=== PATIENT | male | born 1985 | race Caucasian/White ===

== ENCOUNTER 2023-05-17 19:30 | Emergency (ER) | payer BC, SELFPAY ==
--- NOTE | ~2023-05-17 | XR_ITS ---
EXAM: XR knee RT 3V DATE: 05/17/2023 20:15 HISTORY: knee pain . COMPARISON: None available. FINDINGS: Normal mineralization. No fracture or dislocation. No lytic or blastic lesion. Mild tricom partmental osteoarthritis. Moderate joint effusion. No erosion or periosteal change. Soft tissues wit hin normal limits. IMPRESSION: No acute osseous finding in the right knee. Reviewed, dictated and finalized at location K. TECHNICIAN
[2023-05-17 19:32] VITALS: BP 127/77; PULSE 97; RESP 14; TEMP 36.7; O2SAT 95
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
[2023-05-17] MEDS: IBUPROFEN 600 MG TABLET PO (21:18)
[2023-05-17] MEDS: ACETAMINOPHEN 500 MG TABLET 1000 MG PO (21:18)
== END 2023-05-17 22:14 | disposition home or self-care (01) ==
PROVIDERS: Emergency Provider Student in an Organized Health Care Education/Training Program
DX: M25.561 Pain in right knee (principal); F10.90 Alcohol use, unspecified, uncomplicated; Y90.9 Presence of alcohol in blood, level not specified; W19.XXXA Unspecified fall, initial encounter
CPT/HCPCS: 73562; 99283; A9270

== ENCOUNTER 2023-05-26 12:56 | Emergency (ER) | payer SELFPAY ==
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
== END 2023-05-26 13:03 | disposition left against medical advice (07) ==
LOC: ANHED 13:06
DX: Z53.21 Procedure and treatment not carried out due to patient leaving prior to being seen by health care provider (principal)
CPT/HCPCS: 99199

== ENCOUNTER 2023-06-11 10:50 | Emergency (ER) | payer BC, SELFPAY ==
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
[2023-06-11 11:04] VITALS: BP 112/93; PULSE 88; RESP 16; TEMP 36.5; O2SAT 98
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
[2023-06-11 14:06] VITALS: BP 115/66; PULSE 71; RESP 20; O2SAT 100
== END 2023-06-11 14:08 | disposition home or self-care (01) ==
PROVIDERS: Emergency Provider Student in an Organized Health Care Education/Training Program
DX: S00.83XA Contusion of other part of head, initial encounter (principal); S00.81XA Abrasion of other part of head, initial encounter; S69.92XA Unspecified injury of left wrist, hand and finger(s), initial encounter; K02.9 Dental caries, unspecified; K03.2 Erosion of teeth; F17.210 Nicotine dependence, cigarettes, uncomplicated; Y04.2XXA Assault by strike against or bumped into by another person, initial encounter
CPT/HCPCS: 29125; 70450; 70486; 73130; 99284

== ENCOUNTER 2023-11-15 16:25 | Emergency (ER) | payer BC, SELFPAY ==
[2023-11-15 16:39] VITALS: BP 118/77; PULSE 104; RESP 20; TEMP 36.5; O2SAT 97
--- NOTE | 2023-11-15 19:48 | ED.GENADULT ---
HPI - General Adult General Chief complaint: Psychiatric Symptoms Stated complaint: depression Time Seen by Provider: 11/15/23 19:17 History of Present Illness HPI narrative: This is a 37-year-old male presenting for a work note. Patient says he has felt depressed and tearful over the last several days. This has prevented him from going to work. He is not suicidal or homicidal. No hallucinations. No history of suicide attempts. He did use some alcohol but denies drug use. No access to a firearm. Patient does not have a primary care physician or psychiatrist that he sees. Patient is requesting a work note for why did not make it yesterday and today and a return to work note as well. Related Data Allergies Allergy/AdvReac Type Severity Reaction Status Date / Time No Known Allergies Allergy Verified 11/15/23 16:38 [facility] Past Medical History Medical History Daily consumption of alcohol Social History Social History (Updated 06/11/23 @ 15:01 by Pippa Benjamin MD) Smoking packs per day: 1 Smoking cigarettes per day: 20.0 Smoking status: Current every day smoker Alcohol intake: current Substance use type: marijuana Other substance usage details: Denies other illicit drugs Exam Narrative: APPEARANCE: No apparent distress. Head: atraumatic. EYES: EOMI, NOSE: Atraumatic NECK: Trachea midline RESPIRATORY: No increased rate of breathing scattered wheezing no respiratory distress CARDIOVASCULAR: RRR, no peripheral edema ABDOMINAL: Non-distended MUSCULOSKELETAl: No obvious deformities NEURO: Alert. Moving 4/4 extremities SKIN:: Warm, dry. Normal color PSYCHIATRIC: Normal affect Course Vital Signs Vital signs: Vital Signs Temperature 97.7 F 11/15/23 16:39 Pulse Rate 104 H 11/15/23 16:39 Respiratory Rate 20 11/15/23 16:39 Blood Pressure 118/77 11/15/23 16:39 Pulse Oximetry 97 11/15/23 16:39 Oxygen Delivery Room Air 11/15/23 16:39 Temperature 97.7 F 11/15/23 16:39 Pulse Rate 104 H 11/15/23 16:39 Respiratory Rate 20 11/15/23 16:39 Blood Pressure 118/77 11/15/23 16:39 Pulse Oximetry 97 11/15/23 16:39 Oxygen Delivery Room Air 11/15/23 16:39 Medical Decision Making MDM Narrative Medical decision making narrative: -Course: 37-year-old male presenting for depression. He is not suicidal, homicidal or overtly psychotic. He is requesting a work note so he can go back to work. This was provided he was given resources for our local psychiatric clinic. 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 -Shared decision making / Disposition: Discharge Vital Signs Vital Signs: Vital Signs Temperature 97.7 F 11/15/23 16:39 Pulse Rate 104 H 11/15/23 16:39 Respiratory Rate 20 11/15/23 16:39 Blood Pressure 118/77 11/15/23 16:39 Pulse Oximetry 97 11/15/23 16:39 Oxygen Delivery Room Air 11/15/23 16:39 Temperature 97.7 F 11/15/23 16:39 Pulse Rate 104 H 11/15/23 16:39 Respiratory Rate 20 11/15/23 16:39 Blood Pressure 118/77 11/15/23 16:39 Pulse Oximetry 97 11/15/23 16:39 Oxygen Delivery Room Air 11/15/23 16:39 Discharge Plan Discharge Clinical Impression: Depression Patient Disposition: Home, Self-Care Condition: Stable Instructions: Antibiotic Form, Depression (ED) Additional Instructions: Please follow-up with the resources provided that the chest not clinic. Return to the ED if you develop thoughts of harming herself or others. You can return at any time for re-evaluation. You are cleared to return to work. Prescriptions: No Action acetaminophen 500 mg capsule 1,000 mg PO Q6H PRN (Reason: pain) 7 Days Qty: 60 0RF ibuprofen 600 mg tablet 600 mg PO TID PRN (Reason: pain) 7 Days Qty: 20 0RF Follow-up/Referrals: PHYSICIAN,[facility] [Primary Care Provider] - Stand Alone Forms: Wo
[2023-11-15 20:05] VITALS: BP 120/70; PULSE 98; RESP 20; O2SAT 98
== END 2023-11-15 20:05 | disposition home or self-care (01) ==
PROVIDERS: Emergency Provider Emergency Medicine
DX: F32.A Depression, unspecified (principal); F17.210 Nicotine dependence, cigarettes, uncomplicated
CPT/HCPCS: 99281

== ENCOUNTER 2024-04-06 10:18 | Emergency (ER) | payer BC, SELFPAY ==
--- NOTE | ~2024-04-06 | XR_ITS ---
EXAMINATION: XR chest 2V DATE: 04/06/2024 11:01 INDICATION: Shortness of breath, cough and weakness TECHNIQUE: PA and lateral views of the chest were obtained. COMPARISON: None FINDINGS: The lungs are clear with no focal airspace opacities, pulmonary edema, pleural effusion or pneumothor ax. The cardiomediastinal silhouette is normal. Mild thoracic spondylosis. IMPRESSION: 1. No acute cardiopulmonary disease. Reviewed, dictated and finalized at location A.
[2024-04-06 10:38] VITALS: BP 145/88; PULSE 104; RESP 16; TEMP 36.9; O2SAT 96
[2024-04-06 11:23] LABS: Influenza A QL RT-PCR Negative (Negative); Influenza B QL RT-PCR Negative (Negative); RSV RNA, RT-PCR Negative (Negative); SARS-CoV-2 RNA PCR Negative (Negative)
--- NOTE | 2024-04-06 12:40 | ED.GENADULT ---
HPI - General Adult General Chief complaint: Upper Respiratory Infection Stated complaint: URI symptoms Time Seen by Provider: 04/06/24 12:21 History of Present Illness HPI narrative: 38-year-old male that does have a history of greater than 1 pack per day smoking history presents to the emergency department for a complaint of cough and congestion with associated wheeze that is been going on for greater than 1 week. Patient states he has had decreased sleep and decreased p.o. intake secondary to the persistent cough. Related Data Allergies Allergy/AdvReac Type Severity Reaction Status Date / Time No Known Allergies Allergy Verified 04/06/24 13:05 Review of Systems Review of Systems: All systems reviewed & are unremarkable except as noted in HPI and below PMFSH Past Medical History Medical History Daily consumption of alcohol Social History Social History (Updated 06/11/23 @ 15:01 by Pippa Benjamin MD) Smoking packs per day: 1 Smoking cigarettes per day: 20.0 Smoking status: Current every day smoker Alcohol intake: current Substance use type: marijuana Other substance usage details: Denies other illicit drugs Exam Narrative: APPEARANCE: Well appearing, no pain, no distress, well-nourished. HEAD: normocephalic, atraumatic. EYES: PERRLA/EOMI, conjunctivae clear. NOSE: Normal no drainage EARS:TMS clear with good light reflex. THROAT: Pharynx clear, no exudate. NECK: Supple. No adenopathy, no masses. RESPIRATORY: Extensive wheezing CARDIOVASCULAR: Regular rate and rhythm without murmurs rubs or gallops. ABDOMINAL: Soft, nontender, nondistended, normal bowel sounds MUSCULOSKELETAL: Moves all extremities. Strength/ROM intact, No edema, No calf tenderness. NEURO: Alert. Cranial nerves II through XII intact. Good gait. Good coordination SKIN: Warm, dry. Normal Color Course Course Emergency Course: Patient felt improved with treatment was discharged home antibiotics steroids, Tessalon Perles and p.r.n. albuterol. Vital Signs Vital signs: Vital Signs Temperature 98.4 F 04/06/24 10:38 Pulse Rate 104 H 04/06/24 10:38 Respiratory Rate 16 04/06/24 10:38 Blood Pressure 145/88 H 04/06/24 10:38 Pulse Oximetry 96 04/06/24 10:38 Temperature 98.4 F 04/06/24 10:38 Pulse Rate 104 H 04/06/24 13:01 Respiratory Rate 20 04/06/24 13:01 Blood Pressure 145/88 H 04/06/24 10:38 Pulse Oximetry 96 04/06/24 10:38 Oxygen Delivery Room Air 04/06/24 13:06 Medical Decision Making MDM Narrative Medical decision making narrative: 38-year-old male present to the emergency department for evaluation for increased cough congestion and wheeze. Patient is a long-term and heavy smoker. Patient was strongly encouraged to refrain from smoking. Chest x-ray shows no acute cardiopulmonary abnormality. Patient was negative for influenza COVID and RSV. Patient did feel improved after breathing treatment. Patient was started on Augmentin azithromycin due to the duration of the illness possibility of underlying bacterial pneumonia. Patient was also provided Tessalon Perles and albuterol inhaler with spacer for home. On re-evaluation after the breathing treatment patient does still have some wheezing. Patient was started on steroids in the emergency department as well. Patient was discharged home with additional steroids. Patient states he does feel improved from initial breathing treatment. Patient was once again encouraged to quit smoking and was educated on ways to do this. Patient was also all read information to have follow-up with a primary care physician. Differential Diagnosis Differential Diagnosis: Pneumonia, COPD, COVID, RSV, influenza pneumothorax Vital Signs Vital Signs: Vital Signs Temperature 98.4 F 04/06/24 10:38 Pulse Rate 104 H 04/06/24 10:38 Respiratory Rate 16 04/06/24 10:38 Blood Pressure 145/88 H 04/06/24 10:38 Pulse Oximetry 96 04/06/24 10:3
[2024-04-06 12:54] VITALS: PULSE 97; RESP 20
[2024-04-06] MEDS: ALBUTEROL SULFATE NEB 2.5 MG/3 ML INH INHALATION (12:54)
[2024-04-06 13:01] VITALS: PULSE 104; RESP 20
[2024-04-06] MEDS: AMOXICILLIN/CLAVULANATE K 875-125 MG TAB 1 TABLET PO (13:07)
[2024-04-06] MEDS: BENZONATATE 100 MG CAPSULE PO (13:07)
[2024-04-06] MEDS: AZITHROMYCIN 250 MG TABLET 500 MG PO (13:07)
[2024-04-06] MEDS: predniSONE 20 MG TABLET 60 MG PO (13:30)
[2024-04-06 13:32] VITALS: BP 136/90; PULSE 108; RESP 18; TEMP 36.7; O2SAT 98
== END 2024-04-06 13:33 | disposition home or self-care (01) ==
LOC: ANHED 13:12
PROVIDERS: Preventive Medicine Aerospace Medicine; Emergency Provider Emergency Medicine
DX: J06.9 Acute upper respiratory infection, unspecified (principal); Z20.822 Contact with and (suspected) exposure to COVID-19; F17.210 Nicotine dependence, cigarettes, uncomplicated
CPT/HCPCS: 71046; 87637; 94640; 94664; 99283; A9270; J7512

== ENCOUNTER 2024-09-10 16:53 | Emergency (ER) | payer BC, SELFPAY ==
[2024-09-10 17:00] VITALS: BP 117/70; PULSE 103; RESP 18; TEMP 36.4; O2SAT 100
--- NOTE | 2024-09-10 17:37 | ED.NAVMDI ---
HPI - Nausea/Vomiting/Diarrhea General Chief complaint: Nausea/Vomiting/Diarrhea Stated complaint: shaking, back pain, fever (?) Time Seen by Provider: 09/10/24 17:25 Focused HPI: Patient is a 38-year-old male who presents to the ER with a main complaint of ?shaking. He reports his symptoms have been going on ?since I was here last time. Patient's chart indicates he has a history of narcotic abuse. He was last seen in this ER in July 2024. Patient is a poor historian and the to identify specific symptoms he is experiencing right now. GENERAL: Well-appearing, well-nourished, and in no acute distress. HEAD: Normocephalic, atraumatic. CHEST: Coarse upper lungs, lower lungs clear to auscultation. ?No respiratory distress. HEART: Tachycardia NEURO: ?Alert and oriented x3. Patient screened in triage and initial orders placed.? ?Additional care and disposition to be based upon?diagnostic testing and treatment. Related Data Allergies Allergy/AdvReac Type Severity Reaction Status Date / Time No Known Allergies Allergy Verified 04/06/24 13:05 [facility] Past Medical History Medical History Daily consumption of alcohol Social History Social History Smoking packs per day: 1 Smoking cigarettes per day: 20.0 Smoking status: Current every day smoker Alcohol intake: current Substance use type: opiates Other substance usage details: Denies other illicit drugs Course Vital Signs Vital signs: Vital Signs Temperature 36.4 C L 09/10/24 17:00 Pulse Rate 103 H 09/10/24 17:00 Respiratory Rate 18 09/10/24 17:00 Blood Pressure 117/70 09/10/24 17:00 Pulse Oximetry 100 09/10/24 17:00 Oxygen Delivery Room Air 09/10/24 17:00 Temperature 36.4 C L 09/10/24 17:00 Pulse Rate 103 H 09/10/24 17:00 Respiratory Rate 18 09/10/24 17:00 Blood Pressure 117/70 09/10/24 17:00 Pulse Oximetry 100 09/10/24 17:00 Oxygen Delivery Room Air 09/10/24 17:00 Discharge Plan Discharge Clinical Impression: Drug-induced nausea and vomiting Patient Disposition: Elopement After Seen by Prov Condition: Stable Patient Language: Surinamese Prescriptions: No Action acetaminophen 500 mg capsule 1,000 mg PO Q6H PRN (Reason: pain) 7 Days Qty: 60 0RF ibuprofen 600 mg tablet 600 mg PO TID PRN (Reason: pain) 7 Days Qty: 20 0RF albuterol sulfate 90 mcg/actuation HFA aerosol inhaler 1 inh inhalation QID PRN (Reason: shortness of breath or wheezing) Qty: 6.7 0RF benzonatate 100 mg capsule 100 mg PO TID PRN (Reason: cough) Qty: 14 0RF amoxicillin-pot clavulanate 875-125 mg tablet 1 tablet PO Q12H 7 Days Qty: 14 0RF azithromycin 250 mg tablet See Rx Instructions .ROUTE .COMPLEX Qty: 6 0RF Rx Instructions: For 250 mg dose pack: take 500 mg today (day 1), then 250 mg for 4 days (days 2-5) prednisone 50 mg tablet 50 mg PO DAILY 5 Days Qty: 5 0RF naloxone 4 mg/actuation spray,non-aerosol 1 spray intranasal Q2M Qty: 2 0RF Rx Instructions: spray 1 dose into ONE nostril; alternate nostrils w each dose until help arrives ondansetron 4 mg tablet,disintegrating 4 mg PO Q8H PRN (Reason: nausea and vomiting) Qty: 10 0RF Follow-up/Referrals: UNKNOWN,DOCTOR [Primary Care Provider] -
--- NOTE | 2024-09-10 17:39 | PC.NURSE ---
No answer when pt called for XRAY. Per family in waiting room, he is in the car to eat. Pt did not return to the ER to be seen, did not notify anyone he was leaving and was not seen exiting the ER.
== END 2024-09-10 18:27 | disposition left against medical advice (07) ==
PROVIDERS: Emergency Provider Registered Nurse
DX: T50.901A Poisoning by unspecified drugs, medicaments and biological substances, accidental (unintentional), initial encounter (principal); R11.2 Nausea with vomiting, unspecified; F17.210 Nicotine dependence, cigarettes, uncomplicated
CPT/HCPCS: 99281

== ENCOUNTER 2024-10-15 13:33 | Emergency (ER) | payer BC, SELFPAY ==
[2024-10-15 13:50] VITALS: BP 121/88; PULSE 116; RESP 16; TEMP 36.6; O2SAT 99
--- NOTE | 2024-10-15 14:03 | ED.PSYCH ---
HPI - Psych General Chief Complaint: Psychiatric Symptoms Stated Complaint: Requesting Psych-having SI thoughts Time Seen by Provider: 10/15/24 13:54 History of Present Illness HPI Narrative: Patient is a 38-year-old male who presents ER with thoughts of self-harm. Has history of suicide attempt with overdose 6 months ago. Reports he had 1 drink of alcohol today. Reports he has increased stress at work due to a new boss. He was written up for his 1st offense and given 1 week suspension. He has been thinking about harming the business but not to person. He purchased a sling shot to cause some damage. Because he has been thinking like that he knows with wrong he has been thinking about taking his own life. Related Data Allergies Allergy/AdvReac Type Severity Reaction Status Date / Time No Known Allergies Allergy Verified 10/15/24 13:34 Review of Systems Review of Systems: All systems reviewed & are unremarkable except as noted in HPI and below Constitutional: Constitutional: Reports no additional constitutional complaints ENT: Reports system reviewed and no additional complaints, except as documented Cardiovascular: Cardiovascular: Reports no additional cardiovascular complaints Respiratory: Respiratory: Reports no additional respiratory complaints Gastrointestinal: Gastrointestinal: Reports no additional gastrointestinal complaints Neurologic: Reports system reviewed and no additional complaints, except as documented PMFSH Past Medical History Medical History Daily consumption of alcohol Social History Social History Smoking packs per day: 1 Smoking cigarettes per day: 20.0 Smoking status: Current every day smoker Alcohol intake: current Substance use type: marijuana Other substance usage details: Denies other illicit drugs Exam Narrative: GENERAL: Well-appearing, well-nourished, and in no acute distress. HEAD: Normocephalic, atraumatic. ENT: Mucous membranes moist. CHEST: Clear to auscultation. No respiratory distress. HEART: Regular rate and rhythm. Normal peripheral pulses. ABDOMEN: Soft, nontender, nondistended. EXTREMITIES: Normal range of motion. No edema. SKIN: Warm, dry, no rash. NEURO: Alert and oriented x3. PSYCH: Normal mood and affect. Reports suicidal ideation. Course Course Emergency Course: 1505: Patient is medically cleared for crisis evaluation. 1625: Crisis has evaluated the patient, recommend him patient placement and patient is voluntary. 1903: Awaiting placement, care transferred to Dr. Ramos. Vital Signs Vital signs: Vital Signs Temperature 98 F 10/15/24 13:50 Pulse Rate 116 H 10/15/24 13:50 Respiratory Rate 16 10/15/24 13:50 Blood Pressure 121/88 10/15/24 13:50 Pulse Oximetry 99 10/15/24 13:50 Oxygen Delivery Room Air 10/15/24 13:50 Temperature 98.3 F 10/15/24 16:22 Pulse Rate 90 10/15/24 16:22 Respiratory Rate 18 10/15/24 16:22 Blood Pressure 128/86 10/15/24 16:22 Pulse Oximetry 98 10/15/24 16:22 Oxygen Delivery Room Air 10/15/24 13:50 MDM - Psych Lab Data 10/15/24 14:13 10/15/24 14:13 Labs: Lab Results 10/15/24 Range/Units 14:13 WBC 8.6 (4.5-10.0) K/mm3 RBC 5.18 (4.6-6.20) M/mm3 Hgb 17.3 (14.0-18.0) g/dL Hct 50.6 (42.0-52.0) % MCV 97.7 (80-100) fl MCH 33.4 (26-34) pg MCHC 34.2 (32-36) g/dl RDW 13.9 (11.5-14.5) % Plt Count 318 (150-375) k/mm3 MPV 8.8 (7.4-10.4) fl Immature Gran % (Auto) 0.2 (0-0.5) % Neut % (Auto) 47.2 (45.5-73.1) % Lymph % (Auto) 43.6 (18.3-44.2) % [place] % (Auto) 7.6 (2.6-8.5) % Eos % (Auto) 0.6 (0-4.4) % Baso % (Auto) 0.8 (0.2-1.2) % Lymph # (Auto) 3.73 H (0.9-3.2) K/mm3 [place] # (Auto) 0.7 H (0.1-0.6) K/mm3 Eos # (Auto) 0.1 (0-0.3) K/mm3 Baso # (Auto) 0.1 (0.0-0.1) K/mm3 Abs Immat Gran (auto) 0.02 (0.00-0.031) K/mm3 Absolute Neuts (auto) 4.0 (1.3-6.7) K/mm3 Absolute Nucleated RBC 0.000 (0.0-0.012) K/mm3 Nucleated RBC % 0.0 (0.0-0.2) % Sodium 139 (137-145) mmol/L Potassium 4.1 (3.4-5.0) mmol/L Chloride 103 (98-107) mmol/L Carbon Dioxide 22 (22-30) mmol/L Anion Gap 14 H (4-12) mmol/L BUN 7 L (9-20) mg/dL Creatinine 0.73 (0.7-1.3) mg/dL Estim Creat Clear Calc 120 ml/min Estimated GFR > 60 (59 - ) Glucose 110 (65-110) mg/dL Calcium 8.8 (8.4-10.2) mg/dL Total Bilirubin 0.4 (0.2-1.3) mg/dL AST 28 (17-59) U/L ALT 17 (6-50) U/L Alkaline Phosphatase 66 (38-126) U/L Total Protein 8.0 (6.3-8.2) g/dL Albumin 4.9 (3.5-5.1) g/dL TSH (Reflex) 1.700 (0.465-4.68) uIU/mL Urine Color Dark yellow (Yellow) Urine Appearance Clear (Clear) Urine pH 5.5 (5.0-9.0) Ur Specific [place] 1.024 (1.001-1.035) Urine Protein Trace (Negative) mg/dL Urine Glucose (UA) Negative (Negative) mg/dL Urine Ketones Trace H (Negative) mg/dL Ur Blood (Man) Negative (Negative) Urine Nitrate Negative (Negative) Urine Bilirubin Negative (Negative) Urine Urobilinogen 1.0 (<2.0) mg/dL Leukocyte Esterase Rfl Negative (Negative) ASIA/UL Urine RBC 0-2 (0-2) /hpf Urine WBC 0-5 (0-3) /hpf Ur Squamous Epith Cells None seen (Few) /hpf Urine Bacteria None seen /hpf Urine Casts 0-2 Urine Opiates Screen Negative (Negative) Urine Methadone Screen Negative (Negative) Ur Barbiturates Screen Negative (Negative) Ur Phencyclidine Scrn Negative (Negative) Ur Amphetamine Screen Negative (Negative) U Benzodiazepines Scrn Negative (Negative) Urine Cocaine Screen Negative (Negative) U Cannabinoids Screen Positive A (Negative) Ethyl Alcohol 35 (<10) mg/dL Influenza A (RT-PCR) Negative (Negative) Influenza B (RT-PCR) Negative (Negative) RSV (RT-PCR) Negative (Negative) SARS-CoV-2 RNA (RT-PCR) Negative (Negative) Discharge Plan Discharge Clinical Impression: Suicidal ideation Patient Disposition: Psychiatric Hosp Condition: Stable Patient Language: Sami Prescriptions: No Action acetaminophen 500 mg capsule 1,000 mg PO Q6H PRN (Reason: pain) 7 Days Qty: 60 0RF ibuprofen 600 mg tablet 600 mg PO TID PRN (Reason: pain) 7 Days Qty: 20 0RF albuterol sulfate 90 mcg/actuation HFA aerosol inhaler 1 inh inhalation QID PRN (Reason: shortness of breath or wheezing) Qty: 6.7 0RF benzonatate 100 mg capsule 100 mg PO TID PRN (Reason: cough) Qty: 14 0RF amoxicillin-pot clavulanate 875-125 mg tablet 1 tablet PO Q12H 7 Days Qty: 14 0RF azithromycin 250 mg tablet See Rx Instructions .ROUTE .COMPLEX Qty: 6 0RF Rx Instructions: For 250 mg dose pack: take 500 mg today (day 1), then 250 mg for 4 days (days 2-5) prednisone 50 mg tablet 50 mg PO DAILY 5 Days Qty: 5 0RF naloxone 4 mg/actuation spray,non-aerosol 1 spray intranasal Q2M Qty: 2 0RF Rx Instructions: spray 1 dose into ONE nostril; alternate nostrils w each dose until help arrives ondansetron 4 mg tablet,disintegrating 4 mg PO Q8H PRN (Reason: nausea and vomiting) Qty: 10 0RF Follow-up/Referrals: UNKNOWN,DOCTOR [Primary Care Provider] -
[2024-10-15 14:22] LABS: Basophils Absolute Auto 0.1 K/mm3 (0.0-0.1); Basophils Percent Auto 0.8 % (0.2-1.2); Eosinophils Absolute Auto 0.1 K/mm3 (0-0.3); Eosinophils Percent Auto 0.6 % (0-4.4); Hematocrit 50.6 % (42.0-52.0); Hemoglobin 17.3 g/dL (14.0-18.0); Immature Granulocyte Absolute 0.02 K/mm3 (0.00-0.031); Immature Granulocyte Percent A 0.2 % (0-0.5); Lymphocytes Absolute Auto 3.73 K/mm3 (0.9-3.2); Lymphocytes Percent Auto 43.6 % (18.3-44.2); Mean Corpuscular HGB Conc 34.2 g/dl (32-36); Mean Corpuscular Hemoglobin 33.4 pg (26-34); Mean Corpuscular Volume 97.7 fl (80-100); Mean Platelet Volume 8.8 fl (7.4-10.4); Monocytes Absolute Auto 0.7 K/mm3 (0.1-0.6); Monocytes Percent Auto 7.6 % (2.6-8.5); Neutrophils Percent Auto 47.2 % (45.5-73.1); Platelet Count Result 318 k/mm3 (150-375); Red Blood Count 5.18 M/mm3 (4.6-6.20); Red Cell Distribution Width 13.9 % (11.5-14.5); White Blood Count 8.6 K/mm3 (4.5-10.0)
[2024-10-15 14:29] LABS: Add Urine Microscopic? YES; Appearance Urine Clear (Clear); Bacteria Urine None Seen /hpf; Bilirubin Urine Negative (Negative); Blood Urine Negative (Negative); Color Urine Dark Yellow (Yellow); Glucose Urine UA Negative (Negative); Ketones Urine Trace mg/dL (Negative); Leukocyte Esterase Ur Negative LEU/UL (Negative); Nitrate Urine Negative (Negative); Non Pathogenic Casts 0-2; Protein Urine Trace mg/dL (Negative); RBC Urine 0-2 /hpf (0-2); Specific Grav Ur 1.024 (1.001-1.035); Squamous Epithelial Cell Urine None Seen /hpf (Few); WBC Urine 0-5 /hpf (0-3); pH Urine 5.5 (5.0-9.0)
[2024-10-15 14:31] LABS: Alanine Aminotransferase 17 U/L (6-50); Albumin Level 4.9 g/dL (3.5-5.1); Alkaline Phosphatase 66 U/L (38-126); Anion Gap 14 mmol/L (4-12); Aspartate Amino Transferase 28 U/L (17-59); Bilirubin,Total 0.4 mg/dL (0.2-1.3); Blood Urea Nitrogen 7 mg/dL (9-20); Calcium 8.8 mg/dL (8.4-10.2); Carbon Dioxide 22 mmol/L (22-30); Chloride 103 mmol/L (98-107); Estimated CRCL calculation 120 ml/min; Estimated Glomerular Filt Rate > 60; Glucose 110 mg/dL (65-110); Potassium 4.1 mmol/L (3.4-5.0); Sodium 139 mmol/L (137-145)
[2024-10-15 14:37] LABS: Ethanol 35 mg/dL (<10)
[2024-10-15 14:41] LABS: Amphetamine Screen Urine Negative (Negative); Barbiturate Screen Urine Negative (Negative); Benzodiazepines Screen Urine Negative (Negative); Cannabinoid Screen Urine Positive (Negative); Cocaine Screen Urine Negative (Negative); Methadone Screen Urine Negative (Negative); Opiate Screen Urine Negative (Negative); Phencyclidine Screen Urine Negative (Negative)
[2024-10-15 15:00] LABS: Influenza A QL RT-PCR Negative (Negative); Influenza B QL RT-PCR Negative (Negative); RSV RNA, RT-PCR Negative (Negative); SARS-CoV-2 RNA PCR Negative (Negative)
--- OUTSIDE RECORDS SUMMARY | 2024-10-15 15:29 | XMS_ITS | Continuity of Care Document ---
Author Organization [facility] Auth Address [address] [place] [phone] Phone Care Team Providers Care Newspaper Editor Name Role Phone Richie Whitten MD Unavailable [...] Diagnoses Date Provider Providers Copied on Encounter [facility], [facility] [address] [place] [address], [address] [place] [address], tel:[phone] Urgent Care Center No Information Maria Dolores Quiroz. [address] [place] [address], [id number], . tel:[phone] [facility], [address] [place] [address], [id number], tel:[phone] Ultrasound No Information Maria Dolores Quiroz. [address] [place] [address], [id number], . tel:[phone] Family History Family Member Type Diagnosis Age [...]
[2024-10-15 16:22] VITALS: BP 128/86; PULSE 90; RESP 18; TEMP 36.8; O2SAT 98
--- NOTE | 2024-10-15 17:00 | PC.NURSE ---
patient currently denying any suicidal or homicidal ideation at this time.
--- OUTSIDE RECORDS SUMMARY | 2024-10-15 17:08 | XMS_ITS | Continuity of Care Document ---
Author Organization [facility] Auth Address [address] [place] [phone] Phone Care Team Providers Care Ceo Na Name Role Phone Richie Whitten MD Unavailable [...] Diagnoses Date Provider Providers Copied on Encounter [facility], [facility] [address] [place] [address], [address] [place] [address], tel:[phone] Urgent Care Center No Information Maria Dolores Quiroz. [address] [place] [address], [id number], . tel:[phone] [facility] Auth, [address] [place] [address], [id number], tel:[phone] Ultrasound No Information Maria Dolores Quiroz. [address] [place] [address], [id number], . tel:[phone] Family History Family Member Type Diagnosis Age [...]
--- NOTE | 2024-10-15 17:59 | PC.NURSE ---
Faxed [facility] the chart a 3rd time, including ER MD notes and Nurses notes
--- NOTE | 2024-10-15 19:09 | PC.NURSE ---
Kelli called to report they were accepting pt. States they will call for nurse to nurse in approx 30 min.
== END 2024-10-15 22:30 ==
PROVIDERS: Emergency Provider Emergency Medicine
DX: R45.851 Suicidal ideations (principal); Z11.52 Encounter for screening for COVID-19; F17.210 Nicotine dependence, cigarettes, uncomplicated
CPT/HCPCS: 36415; 80053; 80307; 81001; 82077; 84443; 85025; 87637; 99284; 99285

== ENCOUNTER 2024-11-15 18:29 | Emergency (ER) | payer BC, SELFPAY ==
--- NOTE | ~2024-11-15 | XR_ITS ---
CHEST RADIOGRAPH CLINICAL HISTORY: Cough . COMPARISON: 04/06/2024 TECHNIQUE: Single portable view of the chest. Examination is markedly limited by technique FINDINGS The cardiomediastinal silhouette is unremarkable. The lungs are clear. IMPRESSION: No focal infiltrate or effusion. Reviewed, dictated and finalized at location A.
--- NOTE | ~2024-11-15 | CT_ITS ---
History: Left-sided weakness PROCEDURE: CT head without contrast. COMPARISON: None TECHNIQUE: Axial imaging of the head performed from the skull base to the vertex without IV contrast. Sagittal a nd coronal reformations obtained. DLP: 681 mGy-cm FINDINGS: The ventricles are normal in size, shape and position. There is no mass, mass effect or midline shift. There is no abnormal extra-axial fluid collection or intracranial hemorrhage. Mucoperiosteal thickening within the bilateral ethmoid sinuses, left greater than right. Remaining paranasal sinuses are normal. The mastoid air cells are well aerated. No acute displaced fractures within the overlying cranium. Impression: No acute intracranial hemorrhage or suspicious mass effect. Inflammatory sinus disease Reviewed, dictated and finalized at location A. Impression: No acute intracranial hemorrhage or suspicious mass effect. Inflammatory sinus disease
[2024-11-15 18:30] VITALS: BP 119/86; PULSE 106; RESP 18; TEMP 37; O2SAT 97
--- OUTSIDE RECORDS SUMMARY | 2024-11-15 18:31 | XMS_ITS | Continuity of Care Document ---
Author Organization [facility] Auth Address [address] [place] [phone] Phone Care Team Providers Care Certified Medical Dosimetrist Name Role Phone Richie Whitten MD Unavailable [...] Diagnoses Date Provider Providers Copied on Encounter [facility], [facility] [address] [place] [address], [address] [place] [address], tel:[phone] Urgent Care Center No Information Maria Dolores Quiroz. [address] [place] [address], [id number], . tel:[phone] [facility], [address] [place] [address], [id number], tel:[phone] Ultrasound No Information Maria Dolores Quiroz. [address] [place] [address], [id number], . tel:[phone] Family History Family Member Type Diagnosis Age [...]
--- OUTSIDE RECORDS SUMMARY | 2024-11-15 18:31 | XMS_ITS | Patient Health Record ---
Author Organization [facility] Address [address] [place] [address] Care Team Providers Care Meat Smoker Name Role Phone Sailaja Givens Primary Care Provider Allergies No Known Allergies Reason For Referral Reason client would like co unseling, he is also homeless Diagnosis 1 Alcohol abuse (F10.1 0) Diagnosis 2 PTSD (post-traumatic stress disorder) (F43.10) Diagnosis 3 VIRAJ (generalized anx iety disorder) (F41.1) Diagnosis 4 Cannabis abuse (F12. 10) Diagnosis 5 Bipolar 1 disorder w ith moderate priscilla (F31.12) Diagnosis 6 Suicidal ideation (R 45.851) Referral Organization [facility] Referring Provider First Name Sailaja Referring Provider Last Name Chno Referring Provider Speciality Psychiatry Referred Provider Specialty [facility] [place] Clinical Notes Dorothea Villalpando 08:18:57 AM >Reviewed TIER and noted client has already spoken with central access re: therapy and housing programming. No further needs at this time. Referral Priority Routine Medications Medication SIG (Take, Route, Frequency, Duration) Notes Start Date End Date Status [place] Carbonate 150 MG 1 capsule Orall y Twice a day for 30 days Active DULoxetine HCl 30 MG 1 capsule Orally On ce a day for 30 day(s) 10/31/2024 Active hydrOXYzine Pamoate 25 MG 1 capsule at b edtime as needed Orally Once a day for 30 day(s) 10/31/2024 Active Social History Tobacco Use: Social History Observation Description Date Details (start date - stop date) Current Smoker NA - NA Tobacco Control (Standard) Question Answer Notes Tobacco use: Current smoker How often do you smoke cigarettes? Every day How many cigarettes a day do you smoke? 31 or mo re How soon after you wake up d o you smoke your first cigarette? Within 5 minutes Are you interested in quitting? Thinking about q uitting Problems Problem Type SNOMED Code ICD Code Onset Dates Problem Status W/U Status Risk Notes Problem Alcohol abuse (92842771) Alcohol abuse (F10.10) Active confirmed Problem Posttraumatic stress disorder (14726058) PTSD (post-traumat ic stress disorder) (F43.10) Active confirmed Problem Generalized anxiety disorder (69055844) VIRAJ (generalized anxiety disorder) (F41.1) Active confirmed Problem Cannabis abuse (42442134) Cannabis abuse (F12.10) Active confirmed Problem Bipolar affective disorder, currently manic, moderate (689613997) Bipolar 1 disorder with moderate priscilla (F31.12) Active confirmed Vital Signs Height 5ft 9in in 10/23/2024 Weight 165 lbs 10/23/2024 BMI 24.36 kg/m2 10/23/2024 Encounters Encounter Location Date Provider Diagnosis [address] [address] 10/23/2024 Sailaja Givens Suicidal ideation R45.851 ; Bipolar 1 disorder with moderate priscilla F31.12 ; VIRAJ (generalized anxiety disorder) F41.1 ; PTSD (post-traumatic stress disorder) F43.10 ; Alcohol abuse F10.10 and Cannabis abuse F12.[address] [address] 10/31/2024 Sailaja Givens Bipolar 1 disorder with moderate priscilla F31.12 ; Suicidal ideation R45.851 ; VIRAJ (generalized anxiety disorder) F41.1 ; PTSD (post-traumatic stress disorder) F43.10 ; Alcohol abuse F10.10 and Cannabis abuse F12.10 Assessments Encounter Date Diagnosis (ICD Code) Assessment Notes Treatment Notes Treatment Clinical Notes Section Notes 10/23/2024 Bipolar 1 disorder with moderate priscilla (ICD-10 - F31.12) 10/23/2024 Suicidal ideation (ICD-10 - R45.851) 10/31/2024 Bipolar 1 disorder with moderate priscilla (ICD-10 - F31.12) 10/31/2024 Suicidal ideation (ICD-10 - R45.851) 10/23/2024 VIRAJ (generalized anxiety disorder) (ICD-10 - F41.1) 10/23/2024 PTSD (post-traumatic stress disorder) (ICD-10 - F43.10) 10/31/2024 VIRAJ (generalized anxiety disorder) (ICD-10 - F41.1) 10/23/2024 Alcohol abuse (ICD-10 - F10.10) 10/31/2024 PTSD (post-traumatic stress disorder) (ICD-10 - F43.10) 10/23/2024 Cannabis abuse (ICD-10 - F12.10) 10/31/2024 Alcohol abuse (ICD-10 - F10.10) 10/31/2024 Cannabis abuse (ICD-10 - F12.10) Plan Of Treatment No Information Insurance Providers Payer Name Payer Address Payer Phone Subscriber Number Group Number Insured Name Patient Relationship to Insured Coverage Start Date Coverage End Date [facility] Plan [address] [place] [phone] [id number] 6 Theron Pedersen Self - patient is the insured [address] [phone] [id number] 6 Theron Pedersen Self - patient is the insured 5 Medical (General) History Medical History History ICD Code asthma anxiety depression pstd Hospitalization History Reason Date(Month/Year) [facility]te anxiety, depression,ptsd ,[place]
--- NOTE | 2024-11-15 20:16 | PC.NURSE ---
Patient called at 2016 for room placement with no answer.
--- OUTSIDE RECORDS SUMMARY | 2024-11-15 20:47 | XMS_ITS | Continuity of Care Document ---
Author Organization [facility] Auth Address [address] [place] [phone] Phone Care Team Providers Care Oil Gas And Pipe Tester Name Role Phone Richie Whitten MD Unavailable [...] Diagnoses Date Provider Providers Copied on Encounter [facility], [facility] [address] [place] [address], [address] [place] [address], tel:[phone] Urgent Care Center No Information Maria Dolores Quiroz. [address] [place] [address], [id number], . tel:[phone] [facility] Auth, [address] [place] [address], [id number], tel:[phone] Ultrasound No Information Maria Dolores Quiroz. [address] [place] [address], [id number], . tel:[phone] Family History Family Member Type Diagnosis Age At Onset No Information Payers Payer name Insurance type Covered alliance party ID Authoriza tion(s) No Information Social [...]
[2024-11-15] MEDS: ONDANSETRON HCL ODT 4 MG TABLET PO (21:26)
[2024-11-15 21:40] LABS: Basophils Absolute Auto 0.1 K/mm3 (0.0-0.1); Basophils Percent Auto 0.6 % (0.2-1.2); Eosinophils Absolute Auto 0.1 K/mm3 (0-0.3); Eosinophils Percent Auto 1.5 % (0-4.4); Hematocrit 45.8 % (42.0-52.0); Hemoglobin 15.8 g/dL (14.0-18.0); Immature Granulocyte Absolute 0.02 K/mm3 (0.00-0.031); Immature Granulocyte Percent A 0.2 % (0-0.5); Lymphocytes Percent Auto 41.8 % (18.3-44.2); Mean Corpuscular HGB Conc 34.5 g/dl (32-36); Mean Corpuscular Hemoglobin 33.3 pg (26-34); Mean Corpuscular Volume 96.4 fl (80-100); Mean Platelet Volume 8.8 fl (7.4-10.4); Monocytes Percent Auto 10.5 % (2.6-8.5); Neutrophils Absolute Auto 4.1 K/mm3 (1.3-6.7); Neutrophils Percent Auto 45.4 % (45.5-73.1); Platelet Count Result 298 k/mm3 (150-375); Red Blood Count 4.75 M/mm3 (4.6-6.20); Red Cell Distribution Width 13.5 % (11.5-14.5); White Blood Count 9.1 K/mm3 (4.5-10.0)
--- NOTE | 2024-11-15 21:44 | PC.NURSE ---
Provider assessed pt and made this RN aware and pt was moderate risk on columbia scale. This RN went to bedside to assess pt. pt stated he has constant suicidal thoughts but does not have a plan to act on these. Pt denied current plan to harm self or others but did admit to thoughts of suicide. Pt states he had a recent medication change and believes that is contributing to him feeling all messed up . Pt states I need help I just dont want to go through all this . Pt will be moved to room 15 to be evaluated. At this time pt is a moderate risk.
[2024-11-15 21:51] LABS: Acetaminophen < 10 ug/mL (10-30); Alanine Aminotransferase 17 U/L (6-50); Albumin Level 4.4 g/dL (3.5-5.1); Alkaline Phosphatase 54 U/L (38-126); Anion Gap 13 mmol/L (4-12); Aspartate Amino Transferase 23 U/L (17-59); Bilirubin,Total 0.6 mg/dL (0.2-1.3); Blood Urea Nitrogen 7 mg/dL (9-20); Calcium 8.5 mg/dL (8.4-10.2); Carbon Dioxide 22 mmol/L (22-30); Chloride 103 mmol/L (98-107); Estimated CRCL calculation 103 ml/min; Estimated Glomerular Filt Rate > 60; Ethanol 40 mg/dL (<10); Glucose 93 mg/dL (65-110); Potassium 3.7 mmol/L (3.4-5.0); Salicylate < 1.0 mg/dL (2-20); Sodium 138 mmol/L (137-145)
[2024-11-15 21:53] VITALS: O2SAT 99
[2024-11-15 21:54] LABS: Lithium < 0.2 mmol/L (0.6-1.2)
--- NOTE | 2024-11-15 22:05 | ED.URI ---
HPI - URI/Sore Throat General Chief Complaint: Upper Respiratory Infection <Harjeet Ramos MD - Last Filed: 11/15/24 22:17> Stated Complaint: URI, PANIC ATTACKS <Harjeet Ramos MD - Last Filed: 11/15/24 22:17> Time Seen by Provider: 11/15/24 20:39 <Harjeet Ramos MD - Last Filed: 11/15/24 22:17> Source: patient <Harjeet Ramos MD - Last Filed: 11/15/24 22:17> Mode of arrival: ambulatory <Harjeet Ramos MD - Last Filed: 11/15/24 22:17> Limitations: no limitations <Harjeet Ramos MD - Last Filed: 11/15/24 22:17> History of Present Illness HPI Narrative: This is a 38-year-old male, with history anxiety and depression, who presents emergency department complaining of cough and upper respiratory symptoms the past 3 weeks as well as increased anxiety and intermittent suicidal ideation. The patient states 3 weeks ago he was started on duloxetine, escitalopram and lithium. He states the medications have helped in terms of the intensity of his thoughts but have not decreased frequency was daily. He denies a specific plan. He states he has had cough productive of nonbloody sputum, upper respiratory congestion, fatigue and subjective fevers, chills and body aches that has gradually worsened. He states he has had several sick contacts at work but denies any recent travel. He has no other complaints at this time. He denies homicidal ideations or hallucinations <Harjeet Ramos MD - Last Filed: 11/15/24 22:17> Related Data Allergies/Adverse Reactions: Allergies Allergy/AdvReac Type Severity Reaction Status Date / Time No Known Allergies Allergy Verified 10/15/24 13:34 <Harjeet Ramos MD - Last Filed: 11/15/24 22:17> Review of Systems Review of Systems: Patient also noted intermittent left arm paresthesias and mild weakness since beginning his new medications <Harjeet Ramos MD - Last Filed: 11/15/24 22:17> All systems reviewed & are unremarkable except as noted in HPI and below <Harjeet Ramos MD - Last Filed: 11/15/24 22:17> PMFSH Past Medical History Medical History: Medical History Depression Daily consumption of alcohol <Harjeet Ramos MD - Last Filed: 11/15/24 22:17> Surgical History Surgical History: Surgical History No significant past surgical history <Harjeet Ramos MD - Last Filed: 11/15/24 22:17> Social History Social History: Social History Smoking packs per day: 1 Smoking cigarettes per day: 20.0 Smoking status: Current every day smoker Alcohol intake: current Drinks per week: 28 Substance use type: marijuana Other substance usage details: Denies other illicit drugs <Harjeet Ramos MD - Last Filed: 11/15/24 22:17> Exam Narrative: GENERAL: Well-developed, well-nourished, and in no acute distress. Appears anxious and intermittently tearful HEAD: Normocephalic, atraumatic. EYES: PERRLA and EOMI. ENT: Nares clear, no rhinorrhea or epistaxis. Mucous membranes moist. Oropharynx without tonsillar hypertrophy exudate or other lesions. CHEST: Clear to auscultation. Mild expiratory wheeze in the bilateral posterior lung nugent. No rales or rhonchi HEART: Regular rate and rhythm. No murmur heard. Normal peripheral pulses. ABDOMEN: Soft, nontender, nondistended, normal active bowel sounds. EXTREMITIES: Normal range of motion. No edema. SKIN: Warm, dry, no rash. NEURO: Alert and oriented x3. No focal deficit. Strength 5/5 in all extremities, sensation intact bilaterally, no noted ataxia, cranial nerves 2-12 intact PSYCH: Anxious and intermittently tearful mood and affect. <Harjeet Ramos MD - Last Filed: 11/15/24 22:17> Course Course Emergency Course: 22:11 - The patient appears anxious. He states his symptoms have overall improved since beginning his medications that he continues to have suicidal ideations. He denies a specific plan and denied a plan to nursing staff twice. He is interested involuntary admission if recommended. I suspect the patient's left arm symptoms are secondary to medications. I have low suspicion for CVA at this time. Patient signed out to oncoming ED physician, Dr. Cool. <Harjeet Ramos MD - Last Filed: 11/15/24 22:17> 22:11 - The patient appears anxious. He states his symptoms have overall improved since beginning his medications that he continues to have suicidal ideations. He denies a specific plan and denied a plan to nursing staff twice. He is interested involuntary admission if recommended. I suspect the patient's left arm symptoms are secondary to medications. I have low suspicion for CVA at this time. [facility]. Patient was evaluated by crisis. Patient can be discharged home on safety plan. <Roby Cool MD - Last Filed: 11/16/24 02:53> Vital Signs Vital signs: Vital Signs Temperature 37.0 C 11/15/24 18:30 Pulse Rate 106 H 11/15/24 18:30 Respiratory Rate 18 11/15/24 18:30 Blood Pressure 119/86 11/15/24 18:30 Pulse Oximetry 97 11/15/24 18:30 Temperature 37.0 C 11/15/24 18:30 Pulse Rate 106 H 11/15/24 18:30 Respiratory Rate 18 11/15/24 18:30 Blood Pressure 119/86 11/15/24 18:30 Pulse Oximetry 99 11/15/24 21:53 Oxygen Delivery Room Air 11/15/24 21:53 <Harjeet Ramos MD - Last Filed: 11/15/24 22:17> Vital Signs Temperature 37.0 C 11/15/24 18:30 Pulse Rate 106 H 11/15/24 18:30 Respiratory Rate 18 11/15/24 18:30 Blood Pressure 119/86 11/15/24 18:30 Pulse Oximetry 97 11/15/24 18:30 Temperature 37.0 C 11/15/24 18:30 Pulse Rate 106 H 11/15/24 18:30 Respiratory Rate 18 11/15/24 18:30 Blood Pressure 119/86 11/15/24 18:30 Pulse Oximetry 99 11/15/24 21:53 Oxygen Delivery Room Air 11/15/24 21:53 <Roby Cool MD - Last Filed: 11/16/24 02:53> MDM - URI/Sore Throat MDM Narrative Medical decision making narrative: Plan: Labs, imaging, lithium level, COVID swab, psychiatric consultation, reassess <Harjeet Ramos MD - Last Filed: 11/15/24 22:17> Differential Diagnosis Differential diagnosis: Likely upper respiratory infection, viral infection, bronchitis, influenza and other (COVID, pneumonia, anxiety, depression, metabolic abnormality, alcohol abuse, alcohol withdrawal, drug/alcohol intoxication, other) <Harjeet Ramos MD - Last Filed: 11/15/24 22:17> Lab Data Result diagrams: 11/15/24 21:32 11/15/24 21:32 <Harjeet Ramos MD - Last Filed: 11/15/24 22:17> Labs: Lab Results 11/15/24 11/15/24 Range/Units 21:32 22:01 WBC 9.1 (4.5-10.0) K/mm3 RBC 4.75 (4.6-6.20) M/mm3 Hgb 15.8 (14.0-18.0) g/dL Hct 45.8 (42.0-52.0) % MCV 96.4 (80-100) fl MCH 33.3 (26-34) pg MCHC 34.5 (32-36) g/dl RDW 13.5 (11.5-14.5) % Plt Count 298 (150-375) k/mm3 MPV 8.8 (7.4-10.4) fl Immature Gran % (Auto) 0.2 (0-0.5) % Neut % (Auto) 45.4 L (45.5-73.1) % Lymph % (Auto) 41.8 (18.3-44.2) % [place] % (Auto) 10.5 H (2.6-8.5) % Eos % (Auto) 1.5 (0-4.4) % Baso % (Auto) 0.6 (0.2-1.2) % Lymph # (Auto) 3.80 H (0.9-3.2) K/mm3 [place] # (Auto) 1.0 H (0.1-0.6) K/mm3 Eos # (Auto) 0.1 (0-0.3) K/mm3 Baso # (Auto) 0.1 (0.0-0.1) K/mm3 Abs Immat Gran (auto) 0.02 (0.00-0.031) K/mm3 Absolute Neuts (auto) 4.1 (1.3-6.7) K/mm3 Absolute Nucleated RBC 0.000 (0.0-0.012) K/mm3 Nucleated RBC % 0.0 (0.0-0.2) % Sodium 138 (137-145) mmol/L Potassium 3.7 (3.4-5.0) mmol/L Chloride 103 (98-107) mmol/L Carbon Dioxide 22 (22-30) mmol/L Anion Gap 13 H (4-12) mmol/L BUN 7 L (9-20) mg/dL Creatinine 0.86 (0.7-1.3) mg/dL Estim Creat Clear Calc 103 ml/min Estimated GFR > 60 (59 - ) Glucose 93 (65-110) mg/dL Calcium 8.5 (8.4-10.2) mg/dL Total Bilirubin 0.6 (0.2-1.3) mg/dL AST 23 (17-59) U/L ALT 17 (6-50) U/L Alkaline Phosphatase 54 (38-126) U/L Total Protein 7.0 (6.3-8.2) g/dL Albumin 4.4 (3.5-5.1) g/dL TSH 1.130 (0.465-4.680) uIU/mL Urine Color Dark yellow (Yellow) Urine Appearance Clear (Clear) Urine pH 5.5 (5.0-9.0) Ur Specific [place] 1.032 (1.001-1.035) Urine Protein Negative (Negative) mg/dL Urine Glucose (UA) Negative (Negative) mg/dL Urine Ketones Trace H (Negative) mg/dL Ur Blood (Man) Negative (Negative) Urine Nitrate Negative (Negative) Urine Bilirubin Negative (Negative) Urine Urobilinogen 1.0 (<2.0) mg/dL Leukocyte Esterase Rfl Negative (Negative) ASIA/UL Salicylates < 1.0 L (2-20) mg/dL Urine Opiates Screen Negative (Negative) Urine Methadone Screen Negative (Negative) Acetaminophen < 10 L (10-30) ug/mL Ur Barbiturates Screen Negative (Negative) Ur Phencyclidine Scrn Negative (Negative) Ur Amphetamine Screen Positive A (Negative) U Benzodiazepines Scrn Negative (Negative) [place] < 0.2 L (0.6-1.2) mmol/L Urine Cocaine Screen Negative (Negative) U Cannabinoids Screen Positive A (Negative) Ethyl Alcohol 40 (<10) mg/dL Influenza A (RT-PCR) Negative (Negative) Influenza B (RT-PCR) Negative (Negative) SARS-CoV-2 RNA (RT-PCR) Negative (Negative) <Harjeet Ramos MD - Last Filed: 11/15/24 22:17> Lab Results 11/15/24 11/15/24 Range/Units 21:32 22:01 WBC 9.1 (4.5-10.0) K/mm3 RBC 4.75 (4.6-6.20) M/mm3 Hgb 15.8 (14.0-18.0) g/dL Hct 45.8 (42.0-52.0) % MCV 96.4 (80-100) fl MCH 33.3 (26-34) pg MCHC 34.5 (32-36) g/dl RDW 13.5 (11.5-14.5) % Plt Count 298 (150-375) k/mm3 MPV 8.8 (7.4-10.4) fl Immature Gran % (Auto) 0.2 (0-0.5) % Neut % (Auto) 45.4 L (45.5-73.1) % Lymph % (Auto) 41.8 (18.3-44.2) % [place] % (Auto) 10.5 H (2.6-8.5) % Eos % (Auto) 1.5 (0-4.4) % Baso % (Auto) 0.6 (0.2-1.2) % Lymph # (Auto) 3.80 H (0.9-3.2) K/mm3 [place] # (Auto) 1.0 H (0.1-0.6) K/mm3 Eos # (Auto) 0.1 (0-0.3) K/mm3 Baso # (Auto) 0.1 (0.0-0.1) K/mm3 Abs Immat Gran (auto) 0.02 (0.00-0.031) K/mm3 Absolute Neuts (auto) 4.1 (1.3-6.7) K/mm3 Absolute Nucleated RBC 0.000 (0.0-0.012) K/mm3 Nucleated RBC % 0.0 (0.0-0.2) % Sodium 138 (137-145) mmol/L Potassium 3.7 (3.4-5.0) mmol/L Chloride 103 (98-107) mmol/L Carbon Dioxide 22 (22-30) mmol/L Anion Gap 13 H (4-12) mmol/L BUN 7 L (9-20) mg/dL Creatinine 0.86 (0.7-1.3) mg/dL Estim Creat Clear Calc 103 ml/min Estimated GFR > 60 (59 - ) Glucose 93 (65-110) mg/dL Calcium 8.5 (8.4-10.2) mg/dL Total Bilirubin 0.6 (0.2-1.3) mg/dL AST 23 (17-59) U/L ALT 17 (6-50) U/L Alkaline Phosphatase 54 (38-126) U/L Total Protein 7.0 (6.3-8.2) g/dL Albumin 4.4 (3.5-5.1) g/dL TSH 1.130 (0.465-4.680) uIU/mL Urine Color Dark yellow (Yellow) Urine Appearance Clear (Clear) Urine pH 5.5 (5.0-9.0) Ur Specific [place] 1.032 (1.001-1.035) Urine Protein Negative (Negative) mg/dL Urine Glucose (UA) Negative (Negative) mg/dL Urine Ketones Trace H (Negative) mg/dL Ur Blood (Man) Negative (Negative) Urine Nitrate Negative (Negative) Urine Bilirubin Negative (Negative) Urine Urobilinogen 1.0 (<2.0) mg/dL Leukocyte Esterase Rfl Negative (Negative) ASIA/UL Salicylates < 1.0 L (2-20) mg/dL Urine Opiates Screen Negative (Negative) Urine Methadone Screen Negative (Negative) Acetaminophen < 10 L (10-30) ug/mL Ur Barbiturates Screen Negative (Negative) Ur Phencyclidine Scrn Negative (Negative) Ur Amphetamine Screen Positive A (Negative) U Benzodiazepines Scrn Negative (Negative) [place] < 0.2 L (0.6-1.2) mmol/L Urine Cocaine Screen Negative (Negative) U Cannabinoids Screen Positive A (Negative) Ethyl Alcohol 40 (<10) mg/dL Influenza A (RT-PCR) Negative (Negative) Influenza B (RT-PCR) Negative (Negative) SARS-CoV-2 RNA (RT-PCR) Negative (Negative) <Roby Cool MD - Last Filed: 11/16/24 02:53> Discharge Plan Discharge Clinical Impression: Depression Qualifiers: Depression Type: other depression Qualified Code(s): F32.89 - Other specified depressive episodes Upper respiratory infection Qualifiers: URI type: unspecified URI Qualified Code(s): J06.9 - Acute upper respiratory infection, unspecified <Harjeet Ramos MD - Last Filed: 11/15/24 22:17> Patient Disposition: Home <Harjeet Ramos MD - Last Filed: 11/15/24 22:17> Condition: Stable <Harjeet Ramos MD - Last Filed: 11/15/24 22:17> Instructions: Depression (ED) <Harjeet Ramos MD - Last Filed: 11/15/24 22:17> Patient Language: Vietnamese <Harjeet Ramos MD - Last Filed: 11/15/24 22:17> Prescriptions: New albuterol sulfate 90 mcg/actuation HFA aerosol inhaler 2 inh inhalation Q4H PRN (Reason: shortness of breath or wheezing) Qty: 8.5 0RF No Action acetaminophen 500 mg capsule 1,000 mg PO Q6H PRN (Reason: pain) 7 Days Qty: 60 0RF ibuprofen 600 mg tablet 600 mg PO TID PRN (Reason: pain) 7 Days Qty: 20 0RF albuterol sulfate 90 mcg/actuation HFA aerosol inhaler 1 inh inhalation QID PRN (Reason: shortness of breath or wheezing) Qty: 6.7 0RF benzonatate 100 mg capsule 100 mg PO TID PRN (Reason: cough) Qty: 14 0RF amoxicillin-pot clavulanate 875-125 mg tablet 1 tablet PO Q12H 7 Days Qty: 14 0RF azithromycin 250 mg tablet See Rx Instructions .ROUTE .COMPLEX Qty: 6 0RF Rx Instructions: For 250 mg dose pack: take 500 mg today (day 1), then 250 mg for 4 days (days 2-5) prednisone 50 mg tablet 50 mg PO DAILY 5 Days Qty: 5 0RF naloxone 4 mg/actuation spray,non-aerosol 1 spray intranasal Q2M Qty: 2 0RF Rx Instructions: spray 1 dose into ONE nostril; alternate nostrils w each dose until help arrives ondansetron 4 mg tablet,disintegrating 4 mg PO Q8H PRN (Reason: nausea and vomiting) Qty: 10 0RF <Harjeet Ramos MD - Last Filed: 11/15/24 22:17> Follow-up/Referrals: UNKNOWN,DOCTOR [Primary Care Provider] - <Harjeet Ramos MD - Last Filed: 11/15/24 22:17>
[2024-11-15 22:10] LABS: Add Urine Microscopic? YES; Appearance Urine Clear (Clear); Bilirubin Urine Negative (Negative); Blood Urine Negative (Negative); Color Urine Dark Yellow (Yellow); Glucose Urine UA Negative (Negative); Ketones Urine Trace mg/dL (Negative); Leukocyte Esterase Ur Negative LEU/UL (Negative); Nitrate Urine Negative (Negative); Protein Urine Negative (Negative); Specific Grav Ur 1.032 (1.001-1.035); pH Urine 5.5 (5.0-9.0)
[2024-11-15] MEDS: LORazepam (*CRX) 1 MG TABLET PO (22:10)
--- NOTE | 2024-11-15 22:11 | PC.NURSE ---
Ok per Dr Ramos to not have a sitter with patient, d/t pt not having a current plan.
[2024-11-15 22:15] LABS: Influenza A QL RT-PCR Negative (Negative); Influenza B QL RT-PCR Negative (Negative); SARS-CoV-2 RNA PCR Negative (Negative)
[2024-11-15 22:37] LABS: Barbiturate Screen Urine Negative (Negative); Benzodiazepines Screen Urine Negative (Negative)
[2024-11-15 22:40] LABS: Cannabinoid Screen Urine Positive (Negative); Cocaine Screen Urine Negative (Negative); Methadone Screen Urine Negative (Negative); Opiate Screen Urine Negative (Negative); Phencyclidine Screen Urine Negative (Negative)
[2024-11-15 23:05] LABS: Amphetamine Screen Urine Positive (Negative)
[2024-11-16] MEDS: IPRATROPIUM 0.5 MG/ALBUTEROL SULFATE 2.5 MG AMPUL.NEB 3 ML INHALATION (03:34)
[2024-11-16 03:37] VITALS: PULSE 83; RESP 18
[2024-11-16 03:49] VITALS: PULSE 81; RESP 18
[2024-11-16 03:53] VITALS: PULSE 98; RESP 15; O2SAT 99
== END 2024-11-16 03:55 | disposition home or self-care (01) ==
PROVIDERS: Emergency Provider Preventive Medicine Aerospace Medicine
DX: J06.9 Acute upper respiratory infection, unspecified (principal); F32.89 Other specified depressive episodes; F41.8 Other specified anxiety disorders; F17.210 Nicotine dependence, cigarettes, uncomplicated; Z20.822 Contact with and (suspected) exposure to COVID-19
CPT/HCPCS: 36415; 70450; 71045; 80053; 80143; 80178; 80179; 80307; 81001; 82077; 84443; 85025; 87636; 94640; 99284; A9270

== ENCOUNTER 2025-05-11 14:06 | Emergency (ER) | payer BC, SELFPAY ==
--- OUTSIDE RECORDS SUMMARY | 2019-07-04 19:00 | XMS_ITS | Continuity of Care Document ---
Author Organization [facility] Auth Address [address] [place] [phone] Phone Care Team Providers Care Estate Planning Paralegal Name Role Phone Richie Whitten MD Unavailable [...] Diagnoses Date Provider Providers Copied on Encounter [facility], [facility] [address] [place] [address], [address] [place] [address], tel:[phone] Urgent Care Center No Information Maria Dolores Quiroz. [address] [place] [address], [id number], . tel:[phone] [facility], [facility] [place] [address], [id number], tel:[phone] Ultrasound No Information Maria Dolores Quiroz. [address] [place] [address], [id number], . tel:[phone] Family History Family Member Type Diagnosis Age At Onset No Information Payers Payer name Insurance type Covered democrat ID Authoriza tion(s) No Information Social History [...]
--- OUTSIDE RECORDS SUMMARY | 2019-07-04 19:00 | XMS_ITS | Continuity of Care Document ---
Author Organization [place] [facility] Auth Address [address] [place] [phone] Phone Care Team Providers Care Health Care Social Worker Name Role Phone Richie Whitten MD Unavailable [...] Diagnoses Date Provider Providers Copied on Encounter [facility], [facility] [address] [place] [address], [address] [place] [address], tel:[phone] Urgent Care Center No Information Maria Dolores Quiroz. [address] [place] [address], [id number], . tel:[phone] [facility], [facility] [address] [place] [address], [id number], tel:[phone] Ultrasound No Information Maria Dolores Quiroz. [address] [place] [address], [id number], . tel:[phone] Family History Family Member Type Diagnosis Age At Onset No Information Payers Payer name Insurance type Covered libertarian ID Authoriza tion(s) No Information Social History [...]
--- OUTSIDE RECORDS SUMMARY | 2025-03-05 06:20 | XMS_ITS ---
Author Organization [facility] Address [address] [place] [address] Care Team Providers Care Clinical Quality Assurance Associate Name Role Phone Sailaja Givens Primary Care Provider [phone] REASON FOR VISIT 2 Week F/U Medications Medication SIG (Take, Route, Frequency, Duration) Notes Start Date End Date Status LORazepam 0.5 MG 1 tablet Orally twice a day; Duration: 30 days as needed for panic attacks 01/29/2025 Active DULoxetine HCl 60 MG 1 capsule Orally On ce a day; Duration: 30 days Active OLANZapine 5 MG 1 tablet Orally Once a day; Duration: 30 day(s) Active hydrOXYzine Pamoate 25 MG 1-2 capsule Or ally 3 times a day; Duration: 30 days Active Joes Carbonate 150 MG 1 capsule Orall y daily; Duration: 30 days Not-Taking DULoxetine HCl 30 MG 1 capsule Orally On ce a day; Duration: 30 day(s) 01/29/2025 Active Social History Sex Assigned At : Social History Observation Description Sex Assigned At Male Encounters Encounter Location Date Provider Diagnosis [address] [address] 03/05/2025 Sailaja Givens Plan Of Treatment No Information Progress Notes * Theron PEDERSEN LDOB: [birth year] (39 yo M)Acc No.[id number]:03/05/2025 UNLOCKED PROGRESS NOTE Patient: Mukund GILLESPIE Theron Gutiérrez Provider: PB Cordova :1985 A ge:39 Y S ex:Male Date:03/05/2025 Address:[address], [address], [id number] Subjective: * Chief Complaints: * 1 . 2 Week F/U. * HPI: D epression Screening: PHQ-9 L ittle interest or pleasure in doing things N early every day, F eeling down, depressed, or hopeless N early every day, T rouble falling or staying asleep, or sleeping too much N early every day, F eeling tired or having little energy M ore than half the days, P oor appetite or overeating M ore than half the days,?Feeling bad about yourself or that you are a failure, or have let yourself or your family down More than half the days, T rouble concentrating on things, such as reading the newspaper or watching television N early every day, M oving or speaking so slowly that other people could have noticed; or the opposite, being so fidgety or restless that you have been moving around a lot more than usual S everal days, T houghts that you would be better off or of hurting yourself in some way S everal (Consider Suicide Assessment Risk), T otal Score 2 0,?Interpretation S evere Depression. S creening: [place] Suicide Severity Rating Scale (LF) D o you want to initiate with S creener form, 1 . Wish to be : Have you wished you were or wished you could go to sleep and not wake up? Y es, 2 . Suicidal Thoughts: Have you actually had any thoughts of killing yourself? Y es, 3 . Suicidal Thoughts with Method (without Specific Plan or Intent to Act): Have you been thinking about how you might do this? Y es, 4 . Suicidal Intent (without Specific Plan): Have you had these thoughts and had some intention of acting on them? Y es, 5 . Suicide Intent with Specific Plan: Have you started to work out or worked out the details of how to kill yourself? Do you intend to carry out this plan? Y es, 6 . Suicide Behavior Question: Have you ever done anything,started to do anything, or prepared to end your life? Yes, W ere any of these in the past 3 months? Y es, I nterpretation: H igh Risk. * Medical History: * Medications: T aking hydrOXYzine Pamoate 25 MG Capsule 1-2 capsule Orally 3 times a day , Taking DULoxetine HCl 60 MG Capsule Delayed Release Particles 1 capsule Orally Once a day , Taking LORazepam 0.5 MG Tablet 1 tablet Orally twice a day as needed for panic attacks, Taking OLANZapine 5 MG Tablet 1 tablet Orally Once a day , Taking DULoxetine HCl 30 MG Capsule Delayed Release Particles 1 capsule Orally Once a day , Not- Taking Joes Carbonate 150 MG Capsule 1 capsule Orally daily Objective: * Vitals: Assessment: Plan: * Treatment: * * Electronic signature of Gloria Givens on 05/11/2025 at 02:09 PM CDT Sign off status: Pending * Provider: PB Cordova Date: 0 03/05/2025 Generated for Viecnte quintanilla/Sarahi/Desiree on: 1 07/11/2024 02:09 PM CDT History and Physical Notes * HPI (History of Present Illness) Category Sub-Category Detail Notes Category Not es Depression Screening PHQ-9 Little inte rest or pleasure in doing things: Nearly every day Feeling down, depressed, or hopeless: Ne jose every day Trouble falling or staying asleep, or sl eeping too much: Nearly every day Feeling tired or having little energy: M ore than half the days Poor appetite or overeating: More than h [facility] the days Feeling bad about yourself o r that you are a failure, or have let yourself or your family down: More than half the days Trouble concentrating on thi ngs, such as reading the newspaper or watching television: Nearly every day Moving or speaking so slowly that other people could have noticed; or the opposite, being so fidgety or restless that you have been moving around a lot more than usual: Several days Thoughts that you would be b juanita off or of hurting yourself in some way: Several days (Consider Suicide Assessment Risk) Total Score: 20 Interpretation: Severe Depression Screening [place] Suicide Sev erity Rating Scale (LF) Do you want to initiate with: Screener form 1. Wish to be : Have you wished you were or wished you could go to sleep and not wake up?: Yes 2. Suicidal Thoughts: Have you actually had any thoughts of killing yourself?: Yes 3. Suicidal Thoughts with Method (without Specific Plan or Intent to Act): Have you been thinking about how you might do this?: Yes 4. Suicidal Intent (without Specific Plan): Have you had these thoughts and had some intention of acting on them?: Yes 5. Suicide Intent with Specific Plan: Have you started to work out or worked out the details of how to kill yourself? Do you intend to carry out this plan?: Yes 6. Suicide Behavior Question: Have you ever done anything,started to do anything, or prepared to end your life?: Yes Were any of these in the past 3 months?: Yes Interpretation:: High Risk
--- NOTE | ~2025-05-11 | CT_ITS ---
EXAMINATION: CT brain wo con COMPARISON: None HISTORY: altered mental status TECHNIQUE: Axial images were obtained through the brain without IV contrast. CT scan performed using dose optimization techniques including the following automated exposure control; adjustment of mA and/or kV; use of iterative reconstruction technique. Automatic exposure control was used to reduce radiation dose. Permanent radiation dose record is archived to PACS. FINDINGS: No acute infarct or parenchymal hemorrhage. No abnormal mass or mass effect. No midline shift. No extra-axial fluid collections. No hydrocephalus. . Mastoid air cells unremarkable. Sinuses and orbits unremarkable. No acute fracture. No significant facial or scalp soft tissue swelling evident. No radiopaque foreign body is seen. Impression: 1.No acute intracranial abnormality. Reviewed, dictated and finalized at location P. Impression: 1.No acute intracranial abnormality.
--- NOTE | ~2025-05-11 | XR_ITS ---
EXAMINATION: XR chest 2V, 05/11/2025 18:00 CDT HISTORY: chest pain COMPARISON: No comparisons available. Technique: 2 views obtained. Findings: The lungs are clear, no effusion. No pneumothorax. Heart is normal size. Mediastinal and hilar contours are within normal limits. Bony thorax no acute abnormality. Impression: No acute cardiopulmonary abnormality. Reviewed, dictated and finalized at location P. Impression: No acute cardiopulmonary abnormality.
--- NOTE | ~2025-05-11 | CT_ITS ---
EXAMINATION: CT cervical spine wo con COMPARISON: None HISTORY: fall, hit head TECHNIQUE: Axial images were obtained through the spine without IV contrast. Coronal, sagittal reconstruction images were obtained from the axial views. CT scan performed using dose optimization techniques including the following automated exposure control; adjustment of mA and/or kV; use of iterative reconstruction technique. Automatic exposure control was used to reduce radiation dose. Permanent radiation dose record is archived to PACS. FINDINGS: The vertebral heights are intact. No fracture or subluxation. Moderate loss of disc height at C3-4 and C4-5 with moderate canal and foraminal stenosis, outpatient MRI is suggested Soft tissues unremarkable. Impression: No acute abnormality. Reviewed, dictated and finalized at location P. Impression: No acute abnormality.
--- OUTSIDE RECORDS SUMMARY | 2025-05-11 14:10 | XMS_ITS | Patient Health Record ---
Author Organization [facility] Address [address] [place] [address] Care Team Providers Care Meter Supervisor Name Role Phone Sailaja Givens Primary Care Provider IanCora Unavailable [phone] Allergies No Known Allergies Reason For Referral Reason client would like co unseling, he is also homeless Diagnosis 1 Alcohol abuse (F10.1 0) Diagnosis 2 PTSD (post-traumatic stress disorder) (F43.10) Diagnosis 3 VIRAJ (generalized anx iety disorder) (F41.1) Diagnosis 4 Cannabis abuse (F12. 10) Diagnosis 5 Bipolar 1 disorder w ith moderate priscilla (F31.12) Diagnosis 6 Suicidal ideation (R 45.851) Referral Organization [facility] Referring Provider First Name Sailaja Referring Provider Last Name Chon Referring Provider Speciality Psychiatry Referred Provider Specialty Behavioral [facility] Clinical Notes Dorothea Villalpando 08:18:57 AM >Reviewed TIER and noted client has already spoken with central access re: therapy and housing programming. No further needs at this time. Referral Priority Routine Reason please schedule for therapy, he is not good at following up to schedule Diagnosis 1 Alcohol abuse (F10.1 0) Diagnosis 2 PTSD (post-traumatic stress disorder) (F43.10) Diagnosis 3 VIRAJ (generalized anx iety disorder) (F41.1) Diagnosis 4 Cannabis abuse (F12. 10) Diagnosis 5 Bipolar 1 disorder w ith moderate priscilla (F31.12) Diagnosis 6 Suicidal ideation (R 45.851) Diagnosis 7 Panic attack (F41.0) Referral Organization [facility] Referring Provider First Name Sailaja Referring Provider Last Name Chon Referring Provider Speciality Psychiatry Referred Provider Specialty Behavioral [facility] Clinical Notes Dorothea Villalpando Rafa 01:35:52 PM >Client already engaged in OP MH therapy per TIER. Referral Priority Routine Medications Medication SIG (Take, Route, Frequency, Duration) Notes Start Date End Date Status DULoxetine HCl 60 MG 1 capsule Orally On ce a day; Duration: 30 days Active hydrOXYzine Pamoate 25 MG 1-2 capsule Or ally 3 times a day; Duration: 30 days Active OLANZapine 10 MG 1 tablet Orally Once a day; Duration: 30 days Active chlordiazePOXIDE HCl 5 MG 1 capsule Oral ly Twice a day; Duration: 30 days 03/12/2025 Active Towanda Carbonate 150 MG 1 capsule Orall y daily; Duration: 30 days Not-Taking DULoxetine HCl 30 MG 1 capsule Orally On ce a day; Duration: 30 days Active Social History Tobacco Use: Social History Observation Description Date Details (start date - stop date) Current Smoker NA - NA Sex Assigned At : Social History Observation Description Sex Assigned At Male Tobacco Control (Standard) Question Answer Notes Tobacco [...] W/U Status Risk Notes Problem Alcohol abuse (56607835) Alcohol abuse (F10.10) Active confirmed Problem Posttraumatic stress disorder (86908245) PTSD (post-traumat ic stress disorder) (F43.10) Active confirmed Problem Generalized anxiety disorder (93523068) VIRAJ (generalized anxiety disorder) (F41.1) Active confirmed Problem Panic attack (140055123) Panic attack (F41.0) Active confirmed Problem Cannabis abuse (89053301) Cannabis abuse (F12.10) Active confirmed Problem Bipolar affective disorder, currently manic, moderate (398903371) Bipolar 1 disorder with moderate priscilla (F31.12) Active confirmed Vital Signs Height 5ft 9in in 10/23/2024 Weight 165 lbs 10/23/2024 BMI 24.36 kg/m2 10/23/2024 Encounters Encounter Location Date Provider Diagnosis [address] [place] [address] 10/23/2024 Sailaja Givens Suicidal ideation R45.851 ; Bipolar 1 disorder with moderate priscilla F31.12 ; VIRAJ (generalized anxiety disorder) F41.1 ; PTSD (post-traumatic stress disorder) F43.10 ; Alcohol abuse F10.10 and Cannabis abuse F12.[address] [address] 10/31/2024 Sailaja Givens Bipolar 1 disorder with moderate priscilla F31.12 ; Suicidal ideation R45.851 ; VIRAJ (generalized anxiety disorder) F41.1 ; PTSD (post-traumatic stress disorder) F43.10 ; Alcohol abuse F10.10 and Cannabis abuse F12.[address] [address] 11/19/2024 Sailaja Givens Bipolar 1 disorder with moderate priscilla F31.12 ; Panic attack F41.0 ; Suicidal ideation R45.851 ; VIRAJ (generalized anxiety disorder) F41.1 ; PTSD (post-traumatic stress disorder) F43.10 ; Alcohol abuse F10.10 and Cannabis abuse F12.[address] [address] 01/02/2025 Sailaja Givens Panic attack F41.0 ; Bipolar 1 disorder with moderate priscilla F31.12 ; Suicidal ideation R45.851 ; VIRAJ (generalized anxiety disorder) F41.1 ; PTSD (post-traumatic stress disorder) F43.10 ; Alcohol abuse F10.10 and Cannabis abuse F12.[address] [address] 01/29/2025 Sailaja Givens Panic attack F41.0 ; Bipolar 1 disorder with moderate priscilla F31.12 ; Suicidal ideation R45.851 ; VIRAJ (generalized anxiety disorder) F41.1 ; PTSD (post-traumatic stress disorder) F43.10 ; Alcohol abuse F10.10 and Cannabis abuse F12.[address] [address] 03/12/2025 Sailaja Givens VIRAJ (generalized anxiety disorder) F41.1 ; Bipolar 1 disorder with moderate priscilla F31.12 ; Panic attack F41.0 ; PTSD (post-traumatic stress disorder) F43.10 ; Alcohol abuse F10.10 and Cannabis abuse F12.[address] [address] 11/16/2024 Sailaja Givens [address] [address] 11/26/2024 Sailaja Givens VIRAJ (generalized anxiety disorder) F41.1 [facility] [address], [place] [address] 12/26/2024 Cora Sosa Bipolar 1 disorder with moderate priscilla F31.12 and VIRAJ (generalized anxiety disorder) F41.[address] [address] 03/05/2025 Sailaja Givens VIRAJ (generalized anxiety disorder) F41.1 and Bipolar 1 disorder with moderate priscilla F31.[address] [address] 03/05/2025 Sailaja Givens [facility] [address], [place] [address] 03/12/2025 Sailaja Givens [address] [address] 03/21/2025 Sailaja Givens [address] [address] 04/02/2025 Sailaja Givens VIRAJ (generalized anxiety disorder) F41.1 Assessments Encounter Date Diagnosis (ICD Code) Assessment Notes Treatment Notes Treatment Clinical Notes Section Notes 10/23/2024 Bipolar 1 disorder with moderate priscilla (ICD-10 - F31.12) 10/23/2024 Suicidal ideation (ICD-10 - R45.851) 10/31/2024 Bipolar 1 disorder with moderate priscilla (ICD-10 - F31.12) 11/19/2024 Panic attack (ICD-10 - F41.0) Panic Attacks: Care Instructions material was published, Learning About Anxiety Disorders material was published 11/19/2024 Bipolar 1 disorder with moderate priscilla (ICD-10 - F31.12) Learning About How to Get Help During a Mental Health Crisis material was published, Bipolar Disorder: Care Instructions material was published 11/26/2024 VIRAJ (generalized anxiety disorder) (ICD-10 - F41.1) 12/26/2024 Bipolar 1 disorder with moderate priscilla (ICD-10 - F31.12) 01/02/2025 Panic attack (ICD-10 - F41.0) Panic Attacks: Care Instructions material was published, Learning About Anxiety Disorders material was published 01/29/2025 Panic attack (ICD-10 - F41.0) Panic Attacks: Care Instructions material was published, Learning About Anxiety Disorders material was published 01/29/2025 Bipolar 1 disorder with moderate priscilla (ICD-10 - F31.12) Learning About How to Get Help During a Mental Health Crisis material was published, Bipolar Disorder: Care Instructions material was published 03/05/2025 VIRAJ (generalized anxiety disorder) (ICD-10 - F41.1) 03/12/2025 VIRAJ (generalized anxiety disorder) (ICD-10 - F41.1) 03/12/2025 Bipolar 1 disorder with moderate priscilla (ICD-10 - F31.12) 04/02/2025 VIRAJ (generalized anxiety disorder) (ICD-10 - F41.1) 03/12/2025 Panic attack (ICD-10 - F41.0) Panic Attacks: Care Instructions material was published, Learning About Anxiety Disorders material was published 03/05/2025 Bipolar 1 disorder with moderate priscilla (ICD-10 - F31.12) 01/29/2025 Suicidal ideation (ICD-10 - R45.851) Suicidal Thoughts and Behavior: Care Instructions material was published, Suicidal Thoughts in a Family Member: Care Instructions material was published, Learning About Making a Suicide Safety Plan material was published. Instructed on new medications, action and postential side effects. Discussed need to decrease alcohol and cannabis use. 01/02/2025 Bipolar 1 disorder with moderate priscilla (ICD-10 - F31.12) Learning About How to Get Help During a Mental Health Crisis material was published, Bipolar Disorder: Care Instructions material was published 12/26/2024 VIRAJ (generalized anxiety disorder) (ICD-10 - F41.1) 11/19/2024 Suicidal ideation (ICD-10 - R45.851) Suicidal Thoughts and Behavior: Care Instructions material was published, Suicidal Thoughts in a Family Member: Care Instructions material was published, Learning About Making a Suicide Safety Plan material was published. Instructed on new medications, action and postential side effects. Discussed need to decrease alcohol and cannabis use. 10/31/2024 Suicidal ideation (ICD-10 - R45.851) 10/23/2024 VIRAJ (generalized anxiety disorder) (ICD-10 - F41.1) 10/23/2024 PTSD (post-traumati c stress disorder) (ICD-10 - F43.10) 10/31/2024 VIRAJ (generalized anxiety disorder) (ICD-10 - F41.1) 11/19/2024 VIRAJ (generalized anxiety disorder) (ICD-10 - F41.1) Generalized Anxiety Disorder: Care Instructions material was published, Learning About Generalized Anxiety Disorder material was published 01/02/2025 Suicidal ideation (ICD-10 - R45.851) Suicidal Thoughts and Behavior: Care Instructions material was published, Suicidal Thoughts in a Family Member: Care Instructions material was published, Learning About Making a Suicide Safety Plan material was published. Instructed on new medications, action and postential side effects. Discussed need to decrease alcohol and cannabis use. 01/29/2025 VIRAJ (generalized anxiety disorder) (ICD-10 - F41.1) Generalized Anxiety Disorder: Care Instructions material was published, Learning About Generalized Anxiety Disorder material was published 03/12/2025 PTSD (post-traumati c stress disorder) (ICD-10 - F43.10) Post-Traumatic Stress Disorder (PTSD): Care Instructions material was published 03/12/2025 Alcohol abuse (ICD-10 - F10.10) 01/02/2025 VIRAJ (generalized anxiety disorder) (ICD-10 - F41.1) Generalized Anxiety Disorder: Care Instructions material was published, Learning About Generalized Anxiety Disorder material was published 01/29/2025 PTSD (post-traumati c stress disorder) (ICD-10 - F43.10) Post-Traumatic Stress Disorder (PTSD): Care Instructions material was published 10/23/2024 Alcohol abuse (ICD-10 - F10.10) 10/31/2024 PTSD (post-traumati c stress disorder) (ICD-10 - F43.10) 11/19/2024 PTSD (post-traumati c stress disorder) (ICD-10 - F43.10) Post-Traumatic Stress Disorder (PTSD): Care Instructions material was published 11/19/2024 Alcohol abuse (ICD-10 - F10.10) 10/23/2024 Cannabis abuse (ICD-10 - F12.10) 10/31/2024 Alcohol abuse (ICD-10 - F10.10) 01/29/2025 Alcohol abuse (ICD-10 - F10.10) 01/02/2025 PTSD (post-traumati c stress disorder) (ICD-10 - F43.10) Post-Traumatic Stress Disorder (PTSD): Care Instructions material was published 03/12/2025 Cannabis abuse (ICD-10 - F12.10) Substance Use Disorder: Care Instructions material was published, Learning About Cannabis Use Disorder material was published 01/02/2025 Alcohol abuse (ICD-10 - F10.10) 01/29/2025 Cannabis abuse (ICD-10 - F12.10) Substance Use Disorder: Care Instructions material was published, Learning About Cannabis Use Disorder material was published 10/31/2024 Cannabis abuse (ICD-10 - F12.10) 11/19/2024 Cannabis abuse (ICD-10 - F12.10) Substance Use Disorder: Care Instructions material was published, Learning About Cannabis Use Disorder material was published 01/02/2025 Cannabis abuse (ICD-10 - F12.10) Substance Use Disorder: Care Instructions material was published, Learning About Cannabis Use Disorder material was published 11/19/2024 Other Towanda materia l was published, Duloxetine material was published, Hydroxyzine material was published, Lorazepam material was published Plan Of Treatment No Information Insurance Providers Payer Name Payer Address Payer Phone Subscriber Number Group Number Insured Name Patient Relationship to Insured Coverage Start Date Coverage End Date [facility] [address] [place] [address] [id number] 6 Theron Pedersen Self - patient is the insured 5 [facility] [address] [place] [address] [id number] 6 Theron Pedersen Self - patient is the insured 5 Medical (General) History Medical History History ICD Code asthma anxiety depression pstd Hospitalization History Reason Date(Month/Year) touchette anxiety, depression,ptsd ,[place]
[2025-05-11 14:11] VITALS: BP 130/113; PULSE 108; RESP 16; TEMP 36.9; O2SAT 99
--- NOTE | 2025-05-11 17:34 | ECG_ITS ---
Test Date: 2025-05-11 18:44:47 Measurements Intervals [place] Rate: 81 P: 74 [place]: 149 QRS: 70 QRSD: 96 T: 61 QT: 379 QTc: 441 Interpretive Statements SINUS RHYTHM POSSIBLE LEFT ATRIAL ENLARGEMENT [-0.1mV P-WAVE IN V1/V2] Compared to ECG 07/18/2024 19:46:30 Incomplete right bundle-branch block no longer present Electronically Signed On 05-12-2025 03:09:34 ABATTOIR MANAGER by Kiara Gonzalez M.D.
--- NOTE | 2025-05-11 17:38 | ED_ITS ---
HPI - Seizure General Chief Complaint: Seizure Stated Complaint: i had a seizure after throwing up from eating Time Seen by Provider: 05/11/25 17:09 History of Present Illness HPI Narrative: Patient is a 39-year-old male who presents to the ER after sustaining a seizure. He reports he was at bar when he started feeling nauseated so he went into the bathroom where he nearly passed out. Patient reports he was feeling better so he walked back to his bar stool but then fell off and had a witnessed seizure that lasted approximately 2-3 seconds. He reports he has had intermittent seizures in the past but is not on seizure medication. At time of examination he endorses a headache, right-sided chest pain, and right buttocks pain. Patient denies any medical history relevant to this ER visit. Related Data Allergies Allergy/AdvReac Type Severity Reaction Status Date / Time No Known Allergies Allergy Verified 05/11/25 14:14 Review of Systems 2 Review of Systems: All systems reviewed & are unremarkable except as noted in HPI and below PMFSH Past Medical History Medical History Depression Daily consumption of alcohol Surgical History Surgical History No significant past surgical history Social History Social History Smoking packs per day: 1 Smoking cigarettes per day: 20.0 Smoking status: Current every day smoker Alcohol intake: current Drinks per week: 28 Substance use type: marijuana Other substance usage details: Denies other illicit drugs Exam 2 Narrative: GENERAL: Well appearing, well-nourished, non-toxic, in no acute distress. HEAD: Normocephalic, atraumatic. NECK: Supple. No adenopathy, no masses. RESPIRATORY: Airway patent, respirations nonlabored. Clear to auscultation bilaterally, no rales, rhonchi, wheezing. CARDIOVASCULAR: Regular rate and rhythm without murmurs, rubs, or gallops. Peripheral pulses 2+ and equal bilaterally. ABDOMINAL: Soft, nontender, nondistended, no hepatosplenomegaly. Normoactive BS. MUSCULOSKELETAL: Moves all extremities. Strength/ROM intact without gross deformities. SKIN: Warm, dry, normal color. No rashes. No visible bruising, redness, or swelling to chest or R hip. NEURO: A&O X3. Speech clear. Cranial nerves II-XII intact. No ataxic movements. PSYCHIATRIC: Appropriate mood and affect. Normal interaction. Course Vital Signs Vital signs: Vital Signs Temperature 36.9 C 05/11/25 14:11 Pulse Rate 108 H 05/11/25 14:11 Respiratory Rate 16 05/11/25 14:11 Blood Pressure 130/113 H 05/11/25 14:11 Pulse Oximetry 99 05/11/25 14:11 Oxygen Delivery Room Air 05/11/25 14:11 Temperature 36.9 C 05/11/25 14:11 Pulse Rate 83 05/11/25 18:38 Respiratory Rate 15 05/11/25 18:38 Blood Pressure 134/73 05/11/25 18:38 Pulse Oximetry 98 05/11/25 18:38 Oxygen Delivery Room Air 05/11/25 18:00 MDM - Seizure MDM Narrative Medical decision making narrative: Patient is a 39-year-old male who presents to the ER after sustaining a seizure. He reports he was at bar when he started feeling nauseated so he went into the bathroom where he nearly passed out. Patient reports he was feeling better so he walked back to his bar stool but then fell off and had a witnessed seizure that lasted approximately 2-3 seconds. He reports he has had intermittent seizures in the past but is not on seizure medication. At time of examination he endorses a headache, right-sided chest pain, and right buttocks pain. Patient denies any medical history relevant to this ER visit. Labs Ordered: CBC, CMP, coags, lactic acid, magnesium, phosphorus, troponin, UA, UDS, ethyl alcohol Imaging Ordered: CT head, CT cervical spine, chest x-ray Medications Ordered: Tylenol p.o., thiamine IV, 1 L normal saline IV bolus, folic acid IV Results: Patient's chest x-ray, cervical spine, and brain CT indicates no acute abnormalities. Diagnosis: Alcohol withdrawal, methamphetamine abuse, subjective seizure Consults: 1899- Spoke with neurology, Dr. Richardson, who agreed to consult on pt if he was admitted. Pt will be referred to Dr. Richardson as an outpatient. Patient Education/Shared MDM: Results of lab work and imaging shared with patient. He denies any seizure activity while in the ER. Patient has been observed for 7 1/2 hours and has shown no signs of altered mental status or seizure-like activity. He reports he is comfortable being discharged home and following up with Neurology as an outpatient. Patient strongly advised to maintain hydration status upon discharge and follow-up with his PCP in the next 2-3 days for further evaluation. He will not be discharged home with any new prescriptions. Strict return precautions provided. Patient verbalized understanding and is in agreement with plan. Vital signs stable at time of discharge. All questions answered. Differential Diagnosis Differential diagnosis: Likely intractable seizure disorder, focal seizure, generalized seizure, epileptic seizure and other (Alcohol abuse, alcohol withdrawal, methamphetamine abuse) Lab Data Attestation: I reviewed the patient's lab results. 05/11/25 18:21 05/11/25 18:21 Labs: Lab Results 05/11/25 05/11/25 05/11/25 Range/Units 18:21 18:46 21:09 WBC 11.8 H (4.5-10.0) K/mm3 RBC 4.71 (4.6-6.20) M/mm3 Hgb 16.2 (14.0-18.0) g/dL Hct 45.9 (42.0-52.0) % MCV 97.5 (80-100) fl MCH 34.4 H (26-34) pg MCHC 35.3 (32-36) g/dl RDW 13.9 (11.5-14.5) % Plt Count 384 H (150-375) k/mm3 MPV 9.0 (7.4-10.4) fl Immature Gran % (Auto) 0.3 (0-0.5) % Neut % (Auto) 66.3 (45.5-73.1) % Lymph % (Auto) 24.5 (18.3-44.2) % Pratt % (Auto) 7.2 (2.6-8.5) % Eos % (Auto) 1.2 (0-4.4) % Baso % (Auto) 0.5 (0.2-1.2) % Lymph # (Auto) 2.89 (0.9-3.2) K/mm3 Pratt # (Auto) 0.9 H (0.1-0.6) K/mm3 Eos # (Auto) 0.1 (0-0.3) K/mm3 Baso # (Auto) 0.1 (0.0-0.1) K/mm3 Abs Immat Gran (auto) 0.03 (0.00-0.031) K/mm3 Absolute Neuts (auto) 7.9 H (1.3-6.7) K/mm3 Absolute Nucleated RBC 0.000 (0.0-0.012) K/mm3 Nucleated RBC % 0.0 (0.0-0.2) % PT 13.4 (11.1-14.7) Seconds INR 1.0 APTT 28.0 (22.3-36.8) Seconds Sodium 134 L (137-145) mmol/L Potassium 3.7 (3.4-5.0) mmol/L Chloride 101 (98-107) mmol/L Carbon Dioxide 27 (22-30) mmol/L Anion Gap 6 (4-12) mmol/L BUN 9 (9-20) mg/dL Creatinine 0.77 (0.7-1.3) mg/dL Estim Creat Clear Calc 113 ml/min Estimated GFR > 60 (59 - ) Glucose 101 (65-110) mg/dL Lactic Acid 0.5 L (0.7-2.0) mmol/L Calcium 8.8 (8.4-10.2) mg/dL Phosphorus 2.9 (2.5-4.5) mg/dL Magnesium 1.9 (1.6-2.3) mg/dL Total Bilirubin 1.1 (0.2-1.3) mg/dL AST 29 (17-59) U/L ALT 17 (6-50) U/L Alkaline Phosphatase 74 (38-126) U/L Troponin I < 0.012 (0.000-0.034) ng/mL Total Protein 7.4 (6.3-8.2) g/dL Albumin 4.5 (3.5-5.1) g/dL Urine Color Dark yellow (Yellow) Urine Appearance Clear (Clear) Urine pH 6.0 (5.0-9.0) Ur Specific [place] 1.025 (1.001-1.035) Urine Protein 1+ H (Negative) mg/dL Urine Glucose (UA) Negative (Negative) mg/dL Urine Ketones 1+ H (Negative) mg/dL Ur Blood (Man) Negative (Negative) Urine Nitrate Negative (Negative) Urine Bilirubin 1+ H (Negative) Urine Urobilinogen 1.0 (<2.0) mg/dL Add Ur Microanalysis Reviewed Leukocyte Esterase Rfl Trace H (Negative) ASIA/UL Urine RBC 0-2 (0-2) /hpf Urine WBC 0-5 (0-3) /hpf Ur Squamous Epith Cells Occasional (Few) /hpf Urine Bacteria None seen /hpf Urine Casts 6-10 Urine Opiates Screen Negative (Negative) Urine Methadone Screen Negative (Negative) Ur Barbiturates Screen Negative (Negative) Ur Phencyclidine Scrn Negative (Negative) Ur Amphetamine Screen Positive A (Negative) U Benzodiazepines Scrn Negative (Negative) Urine Cocaine Screen Negative (Negative) U Cannabinoids Screen Positive A (Negative) Ethyl Alcohol < 10 (<10) mg/dL Imaging Data Attestation: I personally reviewed and interpreted this imaging study as follows: Radiologist's impression: Impressions Head CT 05/11/25 17:57 Impression: 1.No acute intracranial abnormality. Cervical Spine CT 05/11/25 17:58 Impression: No acute abnormality. Chest X-Ray 05/11/25 18:08 Impression: No acute cardiopulmonary abnormality. Discharge Plan Discharge Clinical Impression: History of seizure, Alcohol withdrawal seizure without complication, Muscle strain of anterior chest wall, Substance abuse, Fall Patient Disposition: Home Condition: Stable Instructions: Antibiotic Form, Nonepileptic Seizures (ED), Alcohol Withdrawal (ED) Additional Instructions: Please return to the ER with any worsening symptoms. Follow-up with primary care provider in the next 2-3 days for further evaluation. Please call the neurology office listed below and schedule an appointment. You may take Tylenol and/or Ibuprofen for pain control. Please refrain from further alcohol or drug use. Patient Language: Nigerian Prescriptions: No Action acetaminophen 500 mg capsule 1,000 mg PO Q6H PRN (Reason: pain) 7 Days Qty: 60 0RF ibuprofen 600 mg tablet 600 mg PO TID PRN (Reason: pain) 7 Days Qty: 20 0RF albuterol sulfate 90 mcg/actuation HFA aerosol inhaler 1 inh inhalation QID PRN (Reason: shortness of breath or wheezing) Qty: 6.7 0RF benzonatate 100 mg capsule 100 mg PO TID PRN (Reason: cough) Qty: 14 0RF amoxicillin-pot clavulanate 875-125 mg tablet 1 tablet PO Q12H 7 Days Qty: 14 0RF azithromycin 250 mg tablet See Rx Instructions .ROUTE .COMPLEX Qty: 6 0RF Rx Instructions: For 250 mg dose pack: take 500 mg today (day 1), then 250 mg for 4 days (days 2-5) prednisone 50 mg tablet 50 mg PO DAILY 5 Days Qty: 5 0RF naloxone 4 mg/actuation spray,non-aerosol 1 spray intranasal Q2M Qty: 2 0RF Rx Instructions: spray 1 dose into ONE nostril; alternate nostrils w each dose until help arrives ondansetron 4 mg tablet,disintegrating 4 mg PO Q8H PRN (Reason: nausea and vomiting) Qty: 10 0RF albuterol sulfate 90 mcg/actuation HFA aerosol inhaler 2 inh inhalation Q4H PRN (Reason: shortness of breath or wheezing) Qty: 8.5 0RF Follow-up/Referrals: Chon,Sailaja Pearson APRN [Primary Care Provider, Unknown] Veto Richardson MD [Physician, Neurology] Time of Disposition: 21:46
[2025-05-11 18:00] VITALS: BP 135/83; PULSE 78; RESP 16; O2SAT 99
[2025-05-11] MEDS: THIAMINE HCL 200 MG/2 ML VIAL 100 MG IV PUSH (18:16)
[2025-05-11] MEDS: ACETAMINOPHEN 500 MG TABLET 1000 MG PO (18:16)
[2025-05-11] MEDS: SODIUM CHLORIDE 0.9% IV 1,000 ML 999 ML IV CONT (18:17)
[2025-05-11] MEDS: FOLIC ACID 1 MG/0.2 ML INJ IV PUSH (18:18)
[2025-05-11 18:27] LABS: Hematocrit 45.9 % (42.0-52.0); Hemoglobin 16.2 g/dL (14.0-18.0); Immature Granulocyte Percent A 0.3 % (0-0.5); Lymphocytes Absolute Auto 2.89 K/mm3 (0.9-3.2); Mean Corpuscular HGB Conc 35.3 g/dl (32-36); Mean Corpuscular Hemoglobin 34.4 pg (26-34); Mean Corpuscular Volume 97.5 fl (80-100); Nucleated Red Blood Cells Absolute Auto 0.000 K/mm3 (0.0-0.012); Nucleated Red Blood Cells Perc 0.0 % (0.0-0.2); Platelet Count Result 384 k/mm3 (150-375); Red Blood Count 4.71 M/mm3 (4.6-6.20); White Blood Count 11.8 K/mm3 (4.5-10.0)
[2025-05-11 18:38] VITALS: BP 134/73; PULSE 83; RESP 15; O2SAT 98
[2025-05-11 18:38] LABS: INR 1.0; Partial Thromboplastin Time 28.0 Seconds (22.3-36.8); Prothrombin Time 13.4 Seconds (11.1-14.7)
[2025-05-11 18:45] LABS: Alanine Aminotransferase 17 U/L (6-50); Albumin Level 4.5 g/dL (3.5-5.1); Alkaline Phosphatase 74 U/L (38-126); Anion Gap 6 mmol/L (4-12); Aspartate Amino Transferase 29 U/L (17-59); Bilirubin,Total 1.1 mg/dL (0.2-1.3); Blood Urea Nitrogen 9 mg/dL (9-20); Calcium 8.8 mg/dL (8.4-10.2); Carbon Dioxide 27 mmol/L (22-30); Chloride 101 mmol/L (98-107); Estimated CRCL calculation 113 ml/min; Estimated Glomerular Filt Rate > 60; Glucose 101 mg/dL (65-110); Magnesium 1.9 mg/dL (1.6-2.3); Potassium 3.7 mmol/L (3.4-5.0); Sodium 134 mmol/L (137-145); Total Protein 7.4 g/dL (6.3-8.2)
[2025-05-11 18:54] LABS: Troponin I < 0.012 ng/mL (0.000-0.034)
[2025-05-11 19:19] LABS: Add Urine Microscopic? YES; Appearance Urine Clear (Clear); Glucose Urine UA Negative (Negative); Leukocyte Esterase Ur Trace LEU/UL (Negative); Need Manual Microscopic Reviewed; Nitrate Urine Negative (Negative); Specific Grav Ur 1.025 (1.001-1.035)
[2025-05-11 19:53] LABS: Cannabinoid Screen Urine Positive (Negative)
== END 2025-05-12 02:27 | disposition home or self-care (01) ==
PROVIDERS: Emergency Provider Registered Nurse; PCP Nurse Practitioner Family
DX: F10.239 Alcohol dependence with withdrawal, unspecified (principal); R56.9 Unspecified convulsions; F15.10 Other stimulant abuse, uncomplicated; Y90.0 Blood alcohol level of less than 20 mg/100 ml; S29.011A Strain of muscle and tendon of front wall of thorax, initial encounter; F32.A Depression, unspecified; F17.210 Nicotine dependence, cigarettes, uncomplicated; W17.89XA Other fall from one level to another, initial encounter
CPT/HCPCS: 36415; 70450; 71046; 72125; 80053; 80307; 81001; 82077; 83605; 83735; 84100; 84484; 85025; 85610; 85730; 93005; 96361; 96374; 96375; 99284; A9270; J3411; J7030

== ENCOUNTER 2025-06-12 13:00 | Emergency (ER) | payer BC, SELFPAY ==
--- OUTSIDE RECORDS SUMMARY | 2019-07-04 18:00 | XMS_ITS | Continuity of Care Document ---
Author Organization [facility] Auth Address [address] [place] [phone] Phone Care Team Providers Care Synthetic Chemist Name Role Phone Richie Whitten MD Unavailable Unavailable Medications Medication Instructions Dosage Effective Dates (start - stop) Status Comments amoxicillin 500 mg capsule TAKE ONE CAPSULE BY MOUTH THREE TIMES A DAY - No Longer Active TAKE ONE CAPSULE PO 3 TIMES/DAY Advance Directives Directive Yes / No Effective Date File Name No Information Encounters Encounter Description Practice Location Reason(s) For Visit Diagnoses Date Provider Providers Copied on Encounter [facility], [facility] [address] [place] [address], [address] [place] [address], tel:[phone] Urgent Care Center No Information Maria Dolores Quiroz. [address] [place] [address], [id number], . tel:[phone] [facility], [facility] [address] [place] [address], [id number], tel:[phone] Ultrasound No Information Maria Dolores Quiroz. [address] [place] [address], [id number], . tel:[phone] Family History Family Member Type Diagnosis Age At Onset No Information Payers Payer name Insurance type Covered green party ID Authoriza tion(s) No Information Social History Type Description Quantity Date Captured Comments Sex Male Smoking Status No Information Vital Signs Date / Time: Height Weight BMI Pulse Rate Blood Pressure Temperature Respiratory Rate Body Surface Area Head Circumference Head Circ. Percentile Wt./Stuart. Percentile BMI percentile Pulse Ox Inhaled Ox 12:00 AM 67.00 in 180.00 lbs 28.1 2 kg/m eter (2) 100 /min 108/74 mm[Hg] 98.00 F 18 /min 100 % Chief Complaint And Reason For Visit No Information Reason For Referral Reason For Referral No Information History Of Present Illness Encounter Date Complaint History Of Prese nt Illness No Information Functional Status Date Functional Assessmen t No Information Instructions Date Instruction Additional Infor mation No Information Assessments Type Assessment Date No Information Patient Care Teams Name Effective Dates (start - stop) Status Members No Information
--- OUTSIDE RECORDS SUMMARY | 2019-07-04 18:00 | XMS_ITS | Continuity of Care Document ---
Author Organization [facility] Auth Address [address] [place] [phone] Phone Care Team Providers Care Flight Security Specialist Name Role Phone Richie Whitten MD Unavailable [...] Diagnoses Date Provider Providers Copied on Encounter [facility], [facility] [address] [place] [address], [address] [place] [address], tel:[phone] Urgent Care Center No Information Maria Dolores Quiroz. [address] [place] [address], [id number], . tel:[phone] [facility], [facility] [address] [place] [address], [id number], tel:[phone] Ultrasound No Information Maria Dolores Quiroz. [address] [place] [address], [id number], . tel:[phone] Family History Family Member Type Diagnosis Age At Onset No Information Payers Payer name Insurance type Covered constitution party ID Authoriza tion(s) No Information Social [...]
--- OUTSIDE RECORDS SUMMARY | 2025-03-05 11:20 | XMS_ITS ---
Author Organization [facility] Address [address] [place] [address] Phone [phone] Care Team Providers Care Neuropsychology Director Name Role Phone Sailaja Givens Primary Care Provider REASON FOR VISIT 2 Week F/U Medications Medication SIG (Take, Route, Frequency, Duration) Notes Start Date End Date Diagnosis (ICD Code) Status LORazepam 0.5 MG Tablet 1 tablet Orally twice a day; Duration: 30 days as needed for panic attacks 01/29/2025 VIRAJ (generalized anxiety disorder) (ICD_10 - F41.1) Active DULoxetine HCl 60 MG Capsule Delayed Release Particles 1 capsule Orally Once a day; Duration: 30 days Bipolar 1 disorder with moderate priscilla (ICD_10 - F31.12) Active OLANZapine 5 MG Tablet 1 tablet Orally Once a day; Duration: 30 day(s) Bipolar 1 disorder with moderate priscilla (ICD_10 - F31.12) Active hydrOXYzine Pamoate 25 MG Capsule 1-2 capsule Orally 3 times a day; Duration: 30 days VIRAJ (generalized anxiety disorder) (ICD_10 - F41.1) Active Estero Carbonate 150 MG Capsule 1 capsule Orally daily; Duration: 30 days Bipolar 1 disorder with moderate priscilla (ICD_10 - F31.12) Not-Taking DULoxetine HCl 30 MG Capsule Delayed Release Particles 1 capsule Orally Once a day; Duration: 30 day(s) 01/29/2025 Bipolar 1 disorder with moderate priscilla (ICD_10 - F31.12) Active Social History Sex Observation Social History Observation Description Sex Observation Male Sexual Orientation Social History Observation Description Sexual Orientation Straight or heterose xual Gender Identity Social History Observation Description Gender Identity Male Encounters Date Time Type Facility Location Provider Diagnosis 03/05/2025 11:20 AM Office Visit [address] [place] [address] Sailaja Givens Plan Of Treatment No Information Medical (General) History Medical History History ICD Code asthma anxiety depression pstd Hospitalization History Reason Date(Month/Year) touchette anxiety, depression,ptsd ,[place] Progress Notes * Theron PEDERSEN LDOB: [birth year] (39 yo M)Acc No.[id number]:03/05/2025 UNLOCKED PROGRESS NOTE Patient: Theron GARZA Provider: PB Cordova :1985 A ge:39 Y S ex:Male Date:03/05/2025 Address:[address] [place], [place] [id number] Subjective: * Chief Complaints: * 1 . [...] hurting yourself in some way S everal days (Consider Suicide Assessment Risk), T otal Score 2 0,?Interpretation S evere Depression. S creening: [place] Suicide Severity Rating Scale (LF) D o [...] es, I nterpretation: H igh Risk. * Screening: * * Medical History: * Medications: T aking [...] Orally Once a day , Not- Taking Estero Carbonate 150 MG Capsule 1 capsule Orally daily Objective: * Vitals: Assessment: Plan: * Treatment: * * Electronic signature of Gloria Givens on 06/12/2025 at 02:06 PM SECOND BALLER Sign off status: Pending * Provider: PB Cordova Date: 0 03/05/2025 Generated for Vicente quintanilla/Sarahi/Desiree on: 08/13/2024 02:06 PM SECOND BALLER History and Physical Notes * HPI (History of Present Illness) Category c/o Denies Symptom Duration Details Notes Catego ry Notes Depression Screening PHQ-9 Little interest or pleasure in doing things: Nearly every day Feeling down, depressed, or hopeless: Ne jose every day Trouble falling or staying asleep, or sl eeping too much: Nearly every day Feeling tired or having little energy: M ore than half the days Poor appetite or overeating: More than h esther the days Feeling bad about yourself o [...] Total Score: 20 Interpretation: Severe Depression Screening [place] Suicid e Severity Rating Scale (LF) Do you want to initiate with : Screener form 1. Wish to be : [...]
--- NOTE | ~2025-06-12 | XR_ITS ---
EXAMINATION: XR knee RT 3V, 06/12/2025 13:20 CERTIFIED NOVELL ENGINEER HISTORY: pain S/P INJ HAND KNEE VS WALL COMPARISON: No comparisons available. Findings: No acute fracture or malalignment. No significant degenerative changes. Soft tissues unremarkable. Impression: No acute fracture or malalignment. Reviewed, dictated and finalized at location P. IFIED NOVELL ENGINEER Impression: No acute fracture or malalignment.
--- NOTE | ~2025-06-12 | XR_ITS ---
EXAMINATION: XR hand RT min 3V, 06/12/2025 13:15 PRODUCTION SAMPLER HISTORY: injury COMPARISON: No comparisons available. Findings: Nondisplaced slightly angulated fracture of the fourth metacarpal head. No significant degenerative changes. Soft tissues unremarkable. Impression: Fourth metacarpal fracture Reviewed, dictated and finalized at location . UCTION SAMPLER Impression: Fourth metacarpal fracture
--- NOTE | 2025-06-12 13:10 | ED_ITS ---
HPI - Extremity Injury (Upper) General Chief Complaint: Extremity Injury, Upper Stated Complaint: pain/swelling in right hand Time Seen by Provider: 06/12/25 13:02 History of Present Illness HPI narrative: 39-year-old male presents ER complaining of right hand pain. States 1 week ago he punched a wall multiple times had of anger. States that he he created his own splint that he has been wearing since. Pain worse with movement. Related Data Allergies Allergy/AdvReac Type Severity Reaction Status Date / Time No Known Allergies Allergy Verified 05/11/25 14:14 Review of Systems Review of Systems: All systems reviewed & are unremarkable except as noted in HPI and below PMFSH Past Medical History Medical History Depression Daily consumption of alcohol Surgical History Surgical History No significant past surgical history Social History Social History Smoking packs per day: 1 Smoking cigarettes per day: 20.0 Smoking status: Current every day smoker Alcohol intake: current Drinks per week: 28 Substance use type: marijuana Other substance usage details: Denies other illicit drugs Exam Const: General: healthy appearing, no acute distress and alert Resp: Effort & Inspection: normal respiratory effort Auscultation: clear to auscultation bilaterally Cardio: Rate: regular rate Rhythm: regular rhythm Skin: General skin exam: normal color Neuro: General: patient oriented x3, moves all extremities and CN's II-XI intact bilaterally Extrem: Other: Right hand: TTP with ST S over the 4th and 5th metacarpals. Ecchymosis noted various stages of healing. Limited range of motion. Neurovascular is intact distally. Psych: Mental Status: mental status grossly normal Affect: normal affect Attitude: cooperative MDM MDM Narrative Medical decision making narrative: In summary: 39-year-old male presents ER complaining of right hand pain after punching a wall 1 week ago. Imaging demonstrates a nondisplaced fracture of the right 4th metacarpal. Patient was placed in a short-arm splint and will refer to orthopedics. Differential Diagnosis Differential Diagnosis: Hand fracture, contusion, dislocation Imaging Data Radiologist's impression: ITS Impressions Hand X-Ray 06/12/25 13:29 Impression: Fourth metacarpal fracture Knee X-Ray 06/12/25 13:32 Impression: No acute fracture or malalignment. Discharge Plan Discharge Clinical Impression: Closed fracture of fourth metacarpal bone Qualifiers: Encounter type: initial encounter Metacarpal location: shaft Fracture alignm ent: nondisplaced Laterality: right Qualified Code(s): S62.354A - Nondisplaced fracture of shaft of fourth metacarpal bone, right hand, initial encounter for closed fracture Patient Disposition: Home Condition: Stable Instructions: Antibiotic Form, Boxer Fracture (ED) Patient Language: Icelandic Prescriptions: New naproxen 500 mg tablet 500 mg PO BID Qty: 20 0RF No Action acetaminophen 500 mg capsule 1,000 mg PO Q6H PRN (Reason: pain) 7 Days Qty: 60 0RF ibuprofen 600 mg tablet 600 mg PO TID PRN (Reason: pain) 7 Days Qty: 20 0RF albuterol sulfate 90 mcg/actuation HFA aerosol inhaler 1 inh inhalation QID PRN (Reason: shortness of breath or wheezing) Qty: 6.7 0RF benzonatate 100 mg capsule 100 mg PO TID PRN (Reason: cough) Qty: 14 0RF amoxicillin-pot clavulanate 875-125 mg tablet 1 tablet PO Q12H 7 Days Qty: 14 0RF azithromycin 250 mg tablet See Rx Instructions .ROUTE .COMPLEX Qty: 6 0RF Rx Instructions: For 250 mg dose pack: take 500 mg today (day 1), then 250 mg for 4 days (days 2-5) prednisone 50 mg tablet 50 mg PO DAILY 5 Days Qty: 5 0RF naloxone 4 mg/actuation spray,non-aerosol 1 spray intranasal Q2M Qty: 2 0RF Rx Instructions: spray 1 dose into ONE nostril; alternate nostrils w each dose until help arrives ondansetron 4 mg tablet,disintegrating 4 mg PO Q8H PRN (Reason: nausea and vomiting) Qty: 10 0RF albuterol sulfate 90 mcg/actuation HFA aerosol inhaler 2 inh inhalation Q4H PRN (Reason: shortness of breath or wheezing) Qty: 8.5 0RF Follow-up/Referrals: Chon,Sailaja Pearson APRN [Primary Care Provider, Unknown] Bairon Murry MD [Physician, Orthopedics] Time of Disposition: 13:36
[2025-06-12 13:14] VITALS: BP 113/72; PULSE 66; RESP 16; TEMP 36.5; O2SAT 97
--- OUTSIDE RECORDS SUMMARY | 2025-06-12 14:07 | XMS_ITS | Patient Health Record ---
Author Organization [facility] Address [address] [place] [address] Phone [phone] Care Team Providers Care Restaurant Crew Name Role Phone Sailaja Givens Primary Care Provider [phone] Cora Sosa Unavailable Allergies No Known Allergies Reason For Referral Addressed Referral details can be found under 'Consultation Request Notes' section Medications Medication SIG (Take, Route, Frequency, Duration) Notes Start Date End Date Diagnosis (ICD Code) Status DULoxetine HCl 60 MG Capsule Delayed Release Particles 1 capsule Orally Once a day; Duration: 30 days Bipolar 1 disorder with moderate priscilla (ICD_10 - F31.12) Active hydrOXYzine Pamoate 25 MG Capsule 1-2 capsule Orally 3 times a day; Duration: 30 days VIRAJ (generalized anxiety disorder) (ICD_10 - F41.1) Active OLANZapine 10 MG Tablet 1 tablet Orally Once a day; Duration: 30 days Bipolar 1 disorder with moderate priscilla (ICD_10 - F31.12) Active chlordiazePOXIDE HCl 5 MG Capsule 1 capsule Orally Twice a day; Duration: 30 days 03/12/2025 Alcohol abuse (ICD_10 - F10.10) Active [place] Carbonate 150 MG Capsule 1 capsule Orally daily; Duration: 30 days Bipolar 1 disorder with moderate priscilla (ICD_10 - F31.12) Not-Taking DULoxetine HCl 30 MG Capsule Delayed Release Particles 1 capsule Orally Once a day; Duration: 30 days Bipolar 1 disorder with moderate priscilla (ICD_10 - F31.12) Active Social History Tobacco Use: Social History Observation Description Date Details (start date - stop date) Current Smoker NA - NA Sex Observation Social History Observation Description Sex Observation Male Sexual Orientation Social History Observation Description Sexual Orientation Straight or heterose xual Gender Identity Social History Observation Description Gender Identity Male Social History Primary Social History Social Info Question Answer Notes Living Arrangement Living Arrangement: Homeless Is this a supportive environment? Yes Single Question Alcohol Screening How many times in the past year have you had (4 for women, or 5 for men) or more drinks in a day? 100 Employment Status Employment Status: Employed [employer] Illicit Substance Usage Illicit Substance Usage: Yes Substance Used: Cannabis Frequency Cannabis is used: daily Interested in quitting: No Alcohol Use Alcohol Use Frequency: Weekly or Daily Type of alcohol consumed Liquor Quanity consumed on those occasions 3 or more glasses Tobacco Use: Social Info Question Answer Notes Tobacco Control (Standard) Tobacco use: Current smoker How often do you smoke cigarettes? Every day How many cigarettes a day do you smoke? 31 or more How soon after you wake up do you smoke your first cigarette? Within 5 minutes Are you interested in quitting? Thinking about quitting Problems Problem Type SNOMED Code ICD Code Dates Problem Status W/U Status Risk Notes Problem Alcohol abuse (05760818) Alcohol abuse (F10.10) Added On:2024 Active confirmed Problem Posttraumatic stress disorder (22637923) PTSD (post-traumat ic stress disorder) (F43.10) Added On:2024 Active confirmed Problem Generalized anxiety disorder (27563037) VIRAJ (generalized anxiety disorder) (F41.1) Added On:2024 Active confirmed Problem Panic attack (439683240) Panic attack (F41.0) Added On:2024 Active confirmed Problem Cannabis abuse (76811125) Cannabis abuse (F12.10) Added On:2024 Active confirmed Problem Bipolar affective disorder, currently manic, moderate (306895555) Bipolar 1 disorder with moderate priscilla (F31.12) Added On:2024 Active confirmed Vital Signs Vital Sign Value Notes Appt Date Height 5ft 9in in 10/23/2024 Weight 165 lbs 10/23/2024 BMI 24.36 kg/m2 10/23/2024 Encounters Date Time Type Facility Location Provider Diagnosis 5 02:00 PM Telehealth Office Visit, New Pt., Level 4 ([address]369) [address] [address] Sailaja Givens Suicidal ideation R45.851 ; Bipolar 1 disorder with moderate priscilla F31.12 ; VIRAJ (generalized anxiety disorder) F41.1 ; PTSD (post-traumat ic stress disorder) F43.10 ; Alcohol abuse F10.10 and Cannabis abuse F12.10 5 01:20 PM Telehealth Office Visit, Est Pt., Level 4 (67723) [address] [address] Sailaja Givens Bipolar 1 disorder with moderate priscilla F31.12 ; Suicidal ideation R45.851 ; VIRAJ (generalized anxiety disorder) F41.1 ; PTSD (post-traumat ic stress disorder) F43.10 ; Alcohol abuse F10.10 and Cannabis abuse F12.10 5 03:20 PM Telehealth Office Visit, Est Pt., Level 4 (16501) [address] [address] Sailaja Givens Bipolar 1 disorder with moderate priscilla F31.12 ; Panic attack F41.0 ; Suicidal ideation R45.851 ; VIRAJ (generalized anxiety disorder) F41.1 ; PTSD (post-traumat ic stress disorder) F43.10 ; Alcohol abuse F10.10 and Cannabis abuse F12.10 5 01:40 PM Telehealth Office Visit, Est Pt., Level 4 (41387) [address] [address] Sailaja Givens Panic attack F41.0 ; Bipolar 1 disorder with moderate priscilla F31.12 ; Suicidal ideation R45.851 ; VIRAJ (generalized anxiety disorder) F41.1 ; PTSD (post-traumat ic stress disorder) F43.10 ; Alcohol abuse F10.10 and Cannabis abuse F12.10 5 04:20 PM Telehealth Office Visit, Est Pt., Level 4 (90984) [address] [address] Sailaja Givens Panic attack F41.0 ; Bipolar 1 disorder with moderate priscilla F31.12 ; Suicidal ideation R45.851 ; VIRAJ (generalized anxiety disorder) F41.1 ; PTSD (post-traumat ic stress disorder) F43.10 ; Alcohol abuse F10.10 and Cannabis abuse F12.10 5 09:40 AM Telehealth Office Visit, Est Pt., Level 4 (34434) [address] [address] Sailaja Givens VIRAJ (generalized anxiety disorder) F41.1 ; Bipolar 1 disorder with moderate priscilla F31.12 ; Panic attack F41.0 ; PTSD (post-traumat ic stress disorder) F43.10 ; Alcohol abuse F10.10 and Cannabis abuse F12.10 5 02:09 PM Telephone Encounter [address] [address] Sailaja Givens 5 11:22 AM Telephone Encounter [address] [address] Sailaja Givens VIRAJ (generalized anxiety disorder) F41.1 5 03:26 PM Telephone Encounter [facility] [address], [place] [address] Cora Sosa Bipolar 1 disorder with moderate priscilla F31.12 and VIRAJ (generalized anxiety disorder) F41.1 5 11:37 AM Telephone Encounter [address] [address] Sailaja Givens VIRAJ (generalized anxiety disorder) F41.1 and Bipolar 1 disorder with moderate priscilla F31.12 5 12:55 PM Telephone Encounter [address] [address] Sailaja Givens 5 02:59 PM Telephone Encounter [facility] [address], [place] [address] Sailaja Givens 5 04:15 PM Telephone Encounter [address] [address] Sailaja Givens 10:31 AM Telephone Encounter [address] [place] [address] Sailaja Givens VIRAJ (generalized anxiety disorder) F41.1 Assessments Encounter Date Diagnosis (ICD Code) Assessment Notes Treatment Notes Section Notes 11/26/2024 VIRAJ (generalized anxiety disorder) (ICD-10 - F41.1) 03/05/2025 VIRAJ (generalized anxiety disorder) (ICD-10 - F41.1) 03/12/2025 VIRAJ (generalized anxiety disorder) (ICD-10 - F41.1) 04/02/2025 VIRAJ (generalized anxiety disorder) (ICD-10 - F41.1) 11/19/2024 Panic attack (ICD-10 - F41.0) Panic Attacks: Care Instructions material was published, Learning About Anxiety Disorders material was published 01/02/2025 Panic attack (ICD-10 - F41.0) Panic Attacks: Care Instructions material was published, Learning About Anxiety Disorders material was published 01/29/2025 Panic attack (ICD-10 - F41.0) Panic Attacks: Care Instructions material was published, Learning About Anxiety Disorders material was published 10/23/2024 Bipolar 1 disorder with moderate priscilla (ICD-10 - F31.12) 10/31/2024 Bipolar 1 disorder with moderate priscilla (ICD-10 - F31.12) 11/19/2024 Bipolar 1 disorder with moderate priscilla (ICD-10 - F31.12) Learning About How to Get Help During a Mental Health Crisis material was published, Bipolar Disorder: Care Instructions material was published 12/26/2024 Bipolar 1 disorder with moderate priscilla (ICD-10 - F31.12) 01/29/2025 Bipolar 1 disorder with moderate priscilla (ICD-10 - F31.12) Learning About How to Get Help During a Mental Health Crisis material was published, Bipolar Disorder: Care Instructions material was published 03/12/2025 Bipolar 1 disorder with moderate priscilla (ICD-10 - F31.12) 10/23/2024 Suicidal ideation (ICD-10 - R45.851) 10/31/2024 Suicidal ideation (ICD-10 - R45.851) 11/19/2024 Suicidal ideation (ICD-10 - R45.851) Suicidal Thoughts and Behavior: Care Instructions material was published, Suicidal Thoughts in a Family Member: Care Instructions material was published, Learning About Making a Suicide Safety Plan material was published. Instructed on new medications, action and postential side effects. Discussed need to decrease alcohol and cannabis use. 01/29/2025 Suicidal ideation (ICD-10 - R45.851) Suicidal Thoughts and Behavior: Care Instructions material was published, Suicidal Thoughts in a Family Member: Care Instructions material was published, Learning About Making a Suicide Safety Plan material was published. Instructed on new medications, action and postential side effects. Discussed need to decrease alcohol and cannabis use. 03/05/2025 Bipolar 1 disorder with moderate priscilla (ICD-10 - F31.12) 01/02/2025 Bipolar 1 disorder with moderate priscilla (ICD-10 - F31.12) Learning About How to Get Help During a Mental Health Crisis material was published, Bipolar Disorder: Care Instructions material was published 03/12/2025 Panic attack (ICD-10 - F41.0) Panic Attacks: Care Instructions material was published, Learning About Anxiety Disorders material was published 12/26/2024 VIRAJ (generalized anxiety disorder) (ICD-10 - F41.1) 10/23/2024 VIRAJ (generalized anxiety disorder) (ICD-10 - F41.1) 10/31/2024 VIRAJ (generalized anxiety disorder) (ICD-10 - F41.1) 11/19/2024 VIRAJ (generalized anxiety disorder) (ICD-10 - F41.1) Generalized Anxiety Disorder: Care Instructions material was published, Learning About Generalized Anxiety Disorder material was published 03/12/2025 PTSD (post-traumatic stress disorder) (ICD-10 - F43.10) Post-Traumatic Stress Disorder (PTSD): Care Instructions material was published 10/23/2024 PTSD (post-traumatic stress disorder) (ICD-10 - F43.10) 01/29/2025 VIRAJ (generalized anxiety disorder) (ICD-10 - [...] to decrease alcohol and cannabis use. 10/31/2024 PTSD (post-traumatic stress disorder) (ICD-10 - F43.10) 11/19/2024 PTSD (post-traumatic stress disorder) (ICD-10 - F43.10) Post-Traumatic Stress Disorder (PTSD): Care Instructions material was published 10/23/2024 Alcohol abuse (ICD-10 - F10.10) 01/29/2025 PTSD (post-traumatic stress disorder) (ICD-10 - F43.10) Post-Traumatic Stress Disorder (PTSD): Care Instructions material was published 03/12/2025 Alcohol abuse (ICD-10 - F10.10) 01/02/2025 VIRAJ (generalized anxiety disorder) (ICD-10 - F41.1) Generalized Anxiety Disorder: Care Instructions material was published, Learning About Generalized Anxiety Disorder material was published 01/29/2025 Alcohol abuse (ICD-10 - F10.10) 10/31/2024 Alcohol abuse (ICD-10 - F10.10) 11/19/2024 Alcohol abuse (ICD-10 - F10.10) 01/02/2025 PTSD (post-traumatic stress disorder) (ICD-10 - F43.10) Post-Traumatic Stress Disorder (PTSD): Care Instructions material was published 10/23/2024 Cannabis abuse (ICD-10 - F12.10) 03/12/2025 Cannabis abuse (ICD-10 - F12.10) Substance Use Disorder: Care Instructions material was published, Learning About Cannabis Use Disorder material was published 10/31/2024 Cannabis abuse (ICD-10 - F12.10) 11/19/2024 Cannabis abuse (ICD-10 - F12.10) Substance Use Disorder: Care Instructions material was published, Learning About Cannabis Use Disorder material was published 01/29/2025 Cannabis abuse (ICD-10 - F12.10) Substance Use Disorder: Care Instructions material was published, Learning About Cannabis Use Disorder material was published 01/02/2025 Alcohol abuse (ICD-10 - F10.10) 01/02/2025 Cannabis abuse (ICD-10 - F12.10) Substance Use Disorder: Care Instructions material was published, Learning About Cannabis Use Disorder material was published 11/19/2024 Other [place] materia l was published, Duloxetine material was published, Hydroxyzine material was published, Lorazepam material was published Plan Of Treatment No Information Insurance Providers Payer Name Payer Address Payer Phone Subscriber Number Group Number Insured Name Patient Relationship to Insured Coverage Start Date Coverage End Date [facility] Plan [address] [place] [address] [phone] [id number] Theron Pedersen Self - patient is the insured 5 [facility] [address] [place] [address] [phone] [id number] 6 Slava , Theron Self - patient is the insured 5 Medical (General) History Medical History History ICD Code asthma anxiety depression pstd Hospitalization History Reason Date(Month/Year) touchette anxiety, depression,ptsd ,SI
--- NOTE | 2025-06-12 14:16 | PC.NURSE ---
patient states that he wants to get something stronger for pain than naproxen because I have things to do tonight and don't want to have to come back here will talk to EDP
--- NOTE | 2025-06-12 14:22 | PC.NURSE ---
patient was informed that the naproxen would help with swelling and discomfort and that his follow up with orthopedics will evaluate for pain management but the naproxen is what is prescribed for pain control at this time. pt states well I don't want that jacob, a good doctor would make sure to give a medication to block pain patient given extensive education on naproxen being a pain medication that would control pain as well as decrease inflammation in the area also helping to control the pain.
== END 2025-06-12 14:27 | disposition home or self-care (01) ==
PROVIDERS: Emergency Provider Nurse Practitioner Family; PCP Nurse Practitioner Family
DX: S62.394A Other fracture of fourth metacarpal bone, right hand, initial encounter for closed fracture (principal); F17.210 Nicotine dependence, cigarettes, uncomplicated; W22.09XA Striking against other stationary object, initial encounter
CPT/HCPCS: 29125; 73130; 73562; 99284; A9270